=== PATIENT | female | born 1950 | race Caucasian/White ===

== ENCOUNTER → 2016-08-08 | Outpatient (CLI) | payer OTHER ==
[~2016-08-08] MED LIST: CHOL200010 PO; CLIN300C10 PO; DTRSR/2 PO; HYDR-5688 PO; LUTE15CA PO; NAPR1TAB9 PO; OMEGCAP2 PO; OMEP20TA PO; PRLSR20 PO; TRAM-10 PO
[2016-08-08 16:52] LABS: HEMATOCRIT 42.3 % (37-47); MEAN CELL VOLUME 91.2 fL (80-100); MEAN CORPUSCULAR HEMOGLOBIN 30.6 pg (25-34); MEAN CORPUSCULAR HGB CONC 33.6 g/dl (32-36); MEAN PLATELET VOLUME 11.9 fL (7.4-10.4); PLATELET COUNT 228 K/uL (130-400); RED BLOOD COUNT 4.64 M/uL (4.2-5.4)
[2016-08-08 17:00] LABS: ALT/SGPT 18 U/L (12-78); AST/SGOT 10 U/L (15-37); BLOOD UREA NITROGEN 22 mg/dl (7-18); BUN/CREATININE RATIO 33.7 (10-20); CALCIUM 8.8 mg/dl (8.5-10.1); CARBON DIOXIDE 28 mmol/L (21-32); CHLORIDE 104 mmol/L (98-107); CREATININE 0.64 mg/dl (0.60-1.20); GLUCOSE 110 mg/dl (70-99); POTASSIUM 3.8 mmol/L (3.5-5.1); SODIUM 141 mmol/L (136-145)
[2016-08-08 17:11] LABS: ALB/GLOB RATIO 1.3 (0.9-2); ALKALINE PHOSPHATASE 66 U/L (45-117); CHOLESTEROL 189 mg/dl (0-200); CHOLESTEROL/HDL RATIO 1.9; HDL CHOLESTEROL 99 mg/dl; LDL CHOLESTEROL CALCULATED 77 mg/dl; TRIGLYCERIDES 64 mg/dl (0-150); VERY LOW DENSITY LIPOPROT CALC 13 mg/dl
== END | disposition home or self-care (01) ==
LOC: C.LABBC 12:33
PROVIDERS: ATTEND Internal Medicine
DX: Z00.00 Encounter for general adult medical examination without abnormal findings (principal)

== ENCOUNTER → 2016-08-10 | Outpatient (CLI) | payer OTHER ==
--- NOTE | 2016-08-10 12:36 | MAMMOGRAPHY REPORT ---
BILATERAL DIGITAL DIAGNOSTIC MAMMOGRAM TOMOSYNTHESIS WITH CAD AND TARGETED LEFT ULTRASOUND: 08/10/2016 CLINICAL HISTORY: The patient reports intermittent bilateral breast pain since 2016. The breast irene n is nonfocal and arises in different areas at different times. She also reports neck/back pain. S he denies any clear palpable lumps, nipple discharge, or other complaints. TECHNIQUE: Breast tomosynthesis in addition to standard 2D mammography was performed. Current study was also evaluated with a Computer Aided Detection (CAD) system. Bilateral CC and MLO 2-D and bret synthesis images and spot magnification left CC and ML views were obtained. COMPARISON: Comparison is made to exams dated: 01/26/2012 mammogram, 01/09/2012 mammogram, and 2006 mammogram. BREAST COMPOSITION: The tissue of both breasts is heterogeneously dense, which may obscure small ma sses. FINDINGS: There is a spiculated irregular 14 x 11 x 12 mm mass with associated architectural distor tion seen within the left 3:00 periareolar breast, new compared to prior exams. Spot magnification views of the mass demonstrate associated faint punctate and amorphous calcifications within the mass . Additionally, a few faint punctate calcifications are seen extending anterior and posterior to th e mass, with the total extent of calcifications measuring approximately 4 cm. The remainder of both breasts are stable compared to prior exams, without suspicious masses, calcifi cations, or areas of architectural distortion noted. Targeted ultrasound was performed of the area of the mammographic mass. In the left breast at 3:00 periareolar region, there is a hypoechoic irregular solid mass which measures 12 x 9 x 10 mm. A few echogenic foci are seen within the mass, which likely represent the calcifications seen mammographi gary. The mass is suspicious for malignancy and ultrasound-guided core needle biopsy is recommende d for further evaluation. Targeted ultrasound of the left axilla demonstrates morphologically normal left axillary lymph nodes without clear evidence of adenopathy. IMPRESSION: ACR BI-RADS CATEGORY 5: HIGHLY SUGGESTIVE OF MALIGNANCY, TARGETED ULTRASOUND ACR BI-RAD S CATEGORY 5: HIGHLY SUGGESTIVE OF MALIGNANCY 1. Irregular hypoechoic 12 mm mass in the left 3:00 periareolar region, with associated calcificati ons seen within the mass and extending anteriorly and posteriorly. The total extent of the findings measures 4.1 cm. Findings are highly suspicious for malignancy and ultrasound-guided core needle b iopsy is recommended for further evaluation. 2. No mammographic evidence of malignancy in the right breast. 3. No evidence of left axillary adenopathy. 4. No etiology for bilateral breast pain is evident. Recommend clinical follow-up. A phone call was made to the physician's office to confirm faxed results were received. The patient has been verbally notified of the results. She tentatively scheduled the biopsy before leaving the department. Approximately 10% of breast cancers are not detected with mammography. A negative mammographic repor t should not delay biopsy if a clinically suggestive mass is present. Rachelle Hill M.D. ah/:08/10/2016 11:27:01 Management Scientist: Ange PEREZ(Maren)(Tracy), [facility] letter sent: Abnormal 4/5 BI-RADS Code: ACR BI-RADS Category 5: Highly Suggestive Of Malignancy Ultrasound BI-RADS: ACR BI-RA DS Category 5: Highly Suggestive Of Malignancy
== END | disposition home or self-care (01) ==
LOC: C.MAMM 10:09
PROVIDERS: ATTEND Internal Medicine
DX: N64.4 Mastodynia (principal); N63 Unspecified lump in breast

== ENCOUNTER → 2016-08-21 | Outpatient (CLI) | payer OTHER ==
[2016-08-22 06:03] LABS: ESTIMATED AVERAGE GLUCOSE 131 mg/dl; HA1C FLAG Normal (Normal)
== END | disposition home or self-care (01) ==
LOC: C.LABPVFM 15:50
PROVIDERS: ATTEND Internal Medicine
DX: R73.01 Impaired fasting glucose (principal)

== ENCOUNTER → 2016-08-23 | Outpatient (CLI) | payer OTHER ==
--- NOTE | 2016-08-23 10:54 | Discharge Instructions ---
Discharge Instructions Procedure Procedure Date: Aug 23, 2016. Reason for visit: Left Mass. Discharge Discharge Date: Aug 23, 2016. Discharge Diagnosis: status post breast biopsy Instructions Activity Recommendations: Additional Limitations (see below) Return to School/Work: no limitations Recommended Home Diet: No Limitations Provider Instructions: ACTIVITY RECOMMENDATIONS: * No lifting, pushing, pulling or exercising the affected side for three days. RETURN TO SCHOOL/WORK: * You may return to work/school after the procedure, but do not perform any strenuous activities for 24 to 48 hours. MEDICATIONS: * Tylenol (two 325 mg) every four to six hours if needed for mild pain (if not allergic to Tylenol). DIET: * Resume previous diet. SPECIAL CARE INSTRUCTIONS: * Keep biopsy site dry for 24 hours. May shower after 24 hours, but do not soak (bathe) incision. * May remove Tegaderm (plastic patch) tomorrow AFTER showering. * Leave the steri-strips on for one week. Allow the steri-strips to fall off by themselves. If not off after one week, you may remove them. You may place a Bandaid crosswise over the strips, if desired. * Apply ice 10 minutes on and 10 minutes off as needed. * Wear a bra at bedtime to sleep more comfortably for 2-3 days. * Your referring physician should have the results after approximately 5 to 7 business days. * Call for unusual bleeding, fever, drainage, etc or if you have any questions call during normal business hours or after hours call Dr Hill, [phone]. FOLLOW UP VISIT: Follow-up with Referring Physician as scheduled. Allergies Coded Allergies: Penicillins (Unverified Allergy, Mild, 09/21/15) Aspirin (Unverified Allergy, Unknown, UNKNOWN, 09/21/15) Procaine (Verified Allergy, Unknown, ANAPHYLAXIS, 09/21/15) Counter Former instructed pt to never use Novocain [place] Recommendations: Call your doctor if: * Temperature above 101 degrees * Pain not relieved by pain medicine ordered * There is increased drainage or redness from any incision * You have any unanswered questions or concerns. Your Doctors Instructions noted above were prepared by provider Rachelle Hill. Patient Signature Section: Patient Instructions Signature Page Coco Sutherland Patient (or Guardian) Signature/Date: I have read and understand the instructions given to me by my caregivers. Caregiver/RN/Doctor Signature/Date: The above-named patient and/or guardian has received patient instructions on this date. + Original Patient Signature Page (only) stays with chart. Please make copy for patient.
--- NOTE | 2016-08-23 13:33 | MAMMOGRAPHY REPORT ---
ULTRASOUND GUIDED BIOPSY LEFT BREAST: 08/23/2016 CLINICAL HISTORY: Left 3:00 breast mass and associated calcifications. PATIENT CONSENT: The procedure, risks and benefits were discussed with the patient and informed writ ten consent was obtained. A timeout was performed immediately prior to the procedure. PROCEDURE DESCRIPTION: With ultrasound guidance, aseptic technique, and lidocaine as the local anest hetic (1% lidocaine to anesthetize the skin and 1% lidocaine with epinephrine to anesthetize the astrid per tissues), the mass of concern in the left 3:00 breast was sampled 5 times with a 14-gauge Achiev e biopsy needle. Immediately thereafter, with ultrasound guidance, aseptic technique, and lidocaine as the local anesthetic, a metallic localizer clip was placed centrally in the mass. Direct pressu re was applied to the site immediately post procedure and hemostasis was achieved. Postprocedure un ilateral mammograms were performed to confirm placement of the clip in the expected location of the breast mass. A specimen radiograph was performed, which shows probable faint calcifications to be p resent within at least one of the samples. The patient tolerated the procedure without complication . She was given wound care instructions. The specimens were sent to pathology for analysis. COMPARISON: Comparison is made to exams dated: 08/10/2016 ultrasound, 08/10/2016 mammogram - [facility], 01/26/2012 mammogram, and 01/09/2012 mammogram. IMPRESSION: ULTRASOUND GUIDED BIOPSY Ultrasound guided core needle biopsy of the left 3:00 breast mass with associated calcifications, wi th clip placement. The patient will receive pathology results from her referring provider. Rachelle Hill M.D. ah/:08/23/2016 10:56:47 Blow Pit Helper: Ange OCONNELL)(Tracy), [facility]
--- NOTE | 2016-08-23 13:36 | MAMMOGRAPHY REPORT ---
UNILATERAL LEFT DIGITAL DIAGNOSTIC MAMMOGRAM TOMOSYNTHESIS: 08/23/2016 CLINICAL HISTORY: Status post ultrasound guided biopsy of a left 3:00 breast mass. TECHNIQUE: Breast tomosynthesis in addition to standard 2D mammography was performed. Postprocedur al Left CC and ML tomosynthesis views including C views were obtained. COMPARISON: Comparison is made to exams dated: 08/10/2016 ultrasound, 08/10/2016 mammogram - [facility], 01/26/2012 mammogram, and 01/09/2012 mammogram. BREAST COMPOSITION: The tissue of the left breast is heterogeneously dense, which may obscure small masses. FINDINGS: A new biopsy marker clip is seen within the biopsied left 3:00 breast mass. No significa nt postbiopsy hematoma is seen. IMPRESSION: POST PROCEDURE IMAGING FOR MARKER PLACEMENT New biopsy marker clip status post ultrasound guided core needle biopsy of the left 3:00 breast mass . Pathology results are pending. Approximately 10% of breast cancers are not detected with mammography. A negative mammographic repor t should not delay biopsy if a clinically suggestive mass is present. Rachelle Hill M.D. ah/:08/23/2016 11:01:09 Compensation Expert: Ange Pagan RT(R)(M), [facility] BI-RADS Code: Post Procedure Imaging For Marker Placement
== END | disposition home or self-care (01) ==
LOC: C.MAMM 10:17
PROVIDERS: ATTEND Internal Medicine
DX: N63 Unspecified lump in breast (principal); R92.1 Mammographic calcification found on diagnostic imaging of breast; C50.912 Malignant neoplasm of unspecified site of left female breast

== ENCOUNTER 2016-11-06 08:18 | Observation (INO) | payer OTHER ==
[2016-10-16 11:11] VITALS: BMI 28.0
[2016-10-16 15:00] LABS: BASO % 0.9 %; BASO ABS # 0.06 K/uL (0-0.2); COMPLETE YES; EOS % 3.3 %; IG% 0.3 %; LYMPH % 33.7 %; LYMPH ABS # 2.37 K/uL (1.2-3.4); MEAN CELL VOLUME 89.3 fL (80-100); MEAN CORPUSCULAR HEMOGLOBIN 30.3 pg (25-34); MEAN CORPUSCULAR HGB CONC 33.9 g/dl (32-36); MEAN PLATELET VOLUME 11.9 fL (7.4-10.4); MONO % 12.7 %; NEUT % 49.1 %; PLATELET COUNT 224 K/uL (130-400); RED BLOOD COUNT 4.59 M/uL (4.2-5.4); WHITE BLOOD COUNT 7.03 K/uL (4.8-10.8)
[2016-10-16 15:46] LABS: BUN/CREATININE RATIO 33.4 (10-20); CALCIUM 9.1 mg/dl (8.5-10.1); CREATININE 0.76 mg/dl (0.60-1.20); POTASSIUM 4.3 mmol/L (3.5-5.1)
[~2016-11-06] VITALS: Ht 167.6 cm; Wt 78.2 kg
[2016-11-06] VITALS (8 sets, daily range): BP systolic 110–161; BP diastolic 67–79; PULSE 84–99; TEMP 36.7–37; O2SAT 94–99; Ht 167.6 cm; Wt 78.2 kg
[~2016-11-06 08:18] MED LIST changes: -CHOL200010 PO; -CLIN300C10 PO; +CLINDAMYCIN IV 900 MG in DEXTROSE 5% ADD-VANTAGE 100ML 100 ML IV SCH; -HYDR-5688 PO; +LACTATED RINGER'S 1000ML 1,000 ML IV SCH; -LUTE15CA PO; -OMEGCAP2 PO; -PRLSR20 PO
[2016-11-06] MEDS ORDERED: FENTANYL CITRATE INJ 50 MCG/1 ML 2 ML VIAL ONE (08:44)
[2016-11-06] MEDS ORDERED: MIDAZOLAM HCL 1 MG/ML 2ML VIAL ONE (08:44)
[2016-11-06] MEDS ORDERED: HYDROmorphone INJ 1 MG/ML SYR IV PRN ×2 (08:45→11:30)
[2016-11-06] MEDS ORDERED: ONDANSETRON INJ 2 MG/ML 2 ML VIAL IV PRN ×3 (08:45→12:00)
[2016-11-06] MEDS ORDERED: ATROPINE SULFATE 0.1 MG/ML 5ML SYR IV PRN ×2 (08:45→11:30)
[2016-11-06] MEDS ORDERED: LABETALOL HCL IV 5 MG/ML 20ML IV PRN ×2 (08:45→11:30)
[2016-11-06] MEDS ORDERED: EpHEDrine SULFATE INJ 50 MG/ML AMP IV PRN ×2 (08:45→11:30)
[2016-11-06] MEDS ORDERED: MEPERIDINE HCL 25 MG/ML CARP IV PRN ×2 (08:45→11:30)
[2016-11-06] MEDS ORDERED: ISOSULFAN BLUE 10 MG/ML VIAL 5 ML ONE (09:17)
[2016-11-06] MEDS ORDERED: BUPIVACAINE 0.5 % 5 MG/1 ML MPF 30ML VIAL ONE (09:17)
--- NOTE | 2016-11-06 09:32 | History & Physical Bridge Note ---
H&P Re-Evaluation Bridge Note: I have examined the patient, reviewed the History & Physical and in the interval since the performance of the History & Physical I have noted the following changes of clinical significance: No changes noted
--- NOTE | 2016-11-06 10:24 | DIAGNOSTIC IMAGING REPORT ---
INJECTION FOR NUCLEAR MEDICINE SENTINEL NODE IDENTIFICATION CLINICAL HISTORY: BREAST CA COMPARISON STUDY: Mammogram dated 11/06/2016 FINDINGS: A timeout was performed. The patient's left breast was prepped in a sterile fashion. 5 periareolar intradermal injections were performed utilizing a total dose of 0.45 mCi of technetium 99m Lymphoseek No imaging was performed. Localization will be performed in the operating room. IMPRESSION: A left breast lymphoscintigraphy injection was performed. Electronically signed by: Hunter Weinberg M.D. 11/06/2016 10:23 AM Dictated Date/Time: 11/06/2016 10:21 AM
[2016-11-06] MEDS ORDERED: LIDOCAINE HCL 2% 2 ML VIAL (20MG/ML) ONE (10:42)
[2016-11-06] MEDS ORDERED: DEXAMETHASONE SOD INJ 4 MG/ML VIAL ONE (10:42)
[2016-11-06] MEDS ORDERED: PROPOFOL IV EMULSION 10 MG/ML 20 ML VIAL IV ONE (10:42)
[2016-11-06] MEDS ORDERED: ONDANSETRON INJ 2 MG/ML 2 ML VIAL ONE (10:42)
[2016-11-06] MEDS ORDERED: METHYLENE BLUE 0.5% 10 ML VIAL ONE (10:47)
[2016-11-06] MEDS ORDERED: PHENYLEPHRINE HCL INJ 10 MG/ML VIAL ONE (10:58)
[2016-11-06] MEDS ORDERED: FENTANYL CITRATE INJ 50 MCG/1 ML 2 ML VIAL IV PRN (11:30)
--- NOTE | 2016-11-06 11:47 | [facility] Post Operative Brief Note ---
Immediate Operative Summary Operative Date November 06, 2016. Pre-Operative Diagnosis Left Breast Cancer Post-Operative Diagnosis Left Breast Cancer Procedure(s) Performed Left Breast Lumpectomy with Needle Loc and [place] Lymph Node Biopsy Surgeon Dr. Esteban Spudder Surgeon(s) Montez Snyder Estimated Blood Loss 15mL Findings negative SLN, clip w/n breast tissue Specimens A. Left breast tissue: skin and needle is anterior, long silk is lateral, short silk is superior, plain gut is medial. B. Additional superior tissue: long silk lateral, methylene blue is new margin. C. Additional deep medial tissue. Silk is lateral, methylene blue is new margin. Anesthesia gen Complication(s) None Disposition Recovery Room / PACU
[2016-11-06] MEDS ORDERED: LACTATED RINGER'S 1000ML 1,000 ML IV SCH (11:51)
[2016-11-06] MEDS ORDERED: MoRPHine SULFATE 2 MG/ML CARP IV PRN (12:00)
[2016-11-06] MEDS ORDERED: MoRPHine SULFATE 4 MG/ML 1 ML CARP\\VIAL IV PRN (12:00)
[2016-11-06] MEDS ORDERED: HYDROCODONE/ACETAMOPHEN 5/325MG TAB PO PRN (12:00)
[2016-11-06] MEDS ORDERED: PROMETHAZINE HCL INJ 25 MG in SODIUM CHLORIDE 0.9% 50ML 50 ML IV PRN (12:00)
[2016-11-06] MEDS: FENTANYL CITRATE INJ 50 MCG/1 ML 2 ML VIAL IV PRN ×3 (12:12→12:22)
--- NOTE | 2016-11-06 13:01 | Anesthesiology Progress Note ---
Anesthesia Post Op Note Date & Time November 06, 2016 at 13:01 Vital Signs Pain Intensity: 3 Vital Signs Past 12 Hours Date Time Temp Pulse Resp B/P Pulse Ox O2 Delivery O2 Flow Rate FiO2 11/06/16 12:41 83 9 11/06/16 12:41 82 9 98 11/06/16 12:40 129/80 11/06/16 12:36 84 15 100 11/06/16 12:36 84 15 11/06/16 12:35 129/83 11/06/16 12:31 80 14 11/06/16 12:31 80 14 99 11/06/16 12:30 134/82 11/06/16 12:26 74 4 95 11/06/16 12:26 75 4 11/06/16 12:25 129/72 11/06/16 12:21 86 16 11/06/16 12:21 84 16 100 11/06/16 12:20 130/77 11/06/16 12:16 89 15 100 11/06/16 12:16 89 15 11/06/16 12:15 131/81 11/06/16 12:12 84 15 100 11/06/16 12:12 86 15 11/06/16 12:10 129/84 11/06/16 12:07 89 12 100 11/06/16 12:07 88 12 11/06/16 12:05 125/81 11/06/16 12:02 85 15 100 11/06/16 12:02 83 15 11/06/16 12:00 126/79 11/06/16 11:57 86 11/06/16 11:57 86 139/83 100 11/06/16 11:57 36.1 87 16 139/83 100 Mask 10 11/06/16 10:05 37 18 161/76 97 Room Air Notes Mental Status: alert / awake / arousable, participated in evaluation Pt Amnestic to Procedure: Yes Nausea / Vomiting: adequately controlled Pain: adequately controlled Airway Patency, RR, SpO2: stable & adequate BP & HR: stable & adequate Hydration State: stable & adequate Anesthetic Complications: no major complications apparent
--- NOTE | 2016-11-06 13:33 | OPERATIVE REPORT ---
DATE OF OPERATION: 11/06/2016 NAME OF OPERATION: Left partial mastectomy with sentinel lymph node biopsy. PREOPERATIVE DIAGNOSIS: Left breast cancer. POSTOPERATIVE DIAGNOSIS: Same. STAFF SURGEON: Dr. Esteban. AIRLINE MECHANIC: Stevie Scott PA-C. PROCEDURE: The patient was brought in the operating room and placed on the operating table in supine position. Her left breast and axilla were prepped and draped in usual fashion. Incision was made in the left axilla using 0.5% plain Marcaine to anesthetize skin and subcutaneous tissue. Using the Neoprobe, I was able to localize the sentinel node which was sent for frozen section, it was found to be negative. During the frozen section, lumpectomy was performed. The patient had a needle placed in the 4 o'clock position of the left breast. Elliptical incision was made around this area from 5 o'clock to 3 o'clock, dissection carried down around the needle excising the breast tissue. The initial breast tissue was marked with the skin and needle anterior from the 3 o'clock to 5 o'clock position, long silk lateral, short silk superior, plain catgut was medial. This tissue was placed into the Faxitron, the clip was within the tissue. Discussion with Dr. Jade let us to take additional tissue. We took additional superior tissue which was marked with a long silk suture lateral and methylene blue on the new margin. This tissue was likely distal to the tip of the needle and posterior. We also took additional deep and medial tissue which was more retroareolar with a silk suture lateral, methylene blue on the new margin. Clips were placed at the level of the area of tumor and then the deep tissue reapproximated using 2-0 plain catgut suture, then the subcutaneous tissue reapproximated using 3-0 Vicryl suture, then the skin reapproximated using subcuticular 4-0 Monocryl with Steri-Strips to the breast and then 4-0 Prolene at the axillary level. Dressings applied and the patient transferred to recovery room in stable condition. I attest to the content of the Intraoperative Record and any orders documented therein. Any exceptio ns are noted below.
[2016-11-06] MEDS: HYDROCODONE/ACETAMOPHEN 5/325MG TAB PO PRN ×2 (13:39→22:01)
[2016-11-06] MEDS ORDERED: IV FLUIDS COMPLETED PRN (14:15)
--- NOTE | 2016-11-06 14:25 | MAMMOGRAPHY REPORT ---
UNILATERAL LEFT DIGITAL DIAGNOSTIC MAMMOGRAM TOMOSYNTHESIS: 11/06/2016 CLINICAL HISTORY: Biopsy-proven left breast cancer. Patient presents for left lumpectomy, including preoperative localization. Please refer to report from left breast ultrasound guided needle localization performed at the same time for full detail. IMPRESSION: Please refer to report from left breast ultrasound guided needle localization performed at the same time for full detail. Approximately 10% of breast cancers are not detected with mammography. A negative mammographic repor t should not delay biopsy if a clinically suggestive mass is present. Gypsy Jade M.D. ay/:11/06/2016 10:45:06 Front Man: Lulu PEREZ(Maren)(M), [facility] BI-RADS Code: n/a
--- NOTE | 2016-11-06 14:25 | MAMMOGRAPHY REPORT ---
NEEDLE LOCALIZATION LEFT BREAST: 11/06/2016 CLINICAL HISTORY: Biopsy-proven left breast cancer. Patient presents for preoperative localization prior to lumpectomy. COMPARISON: Comparison is made to exams dated: 08/23/2016 ultrasound biopsy, 08/23/2016 mammogram, 08/10/2016 ultrasound, 08/10/2016 mammogram - [facility], and 01/26/2012 mammogram. PATIENT CONSENT: The risks of the procedure were explained to the patient and informed consent was o btained. The patient denied any allergy to lidocaine, which she received and had no problems with a t the time of ultrasound-guided core biopsy. She also denied eating or drinking anything this morni ng that would preclude anesthesia. PROCEDURE DESCRIPTION: Postprocedure mammograms obtained after ultrasound guided core biopsy on 08/03 were reviewed. The spiculated mass and internal metallic biopsy marker are the intended targ et for preoperative localization. Based on prior spot magnification views obtained during diagnosti c workup on 08/10/2016, there are also faint microcalcifications medial and posterior to the spicula jorge mass, and no will be made of these macro calcification with regard to the localizing needle and wire. A time out was performed in the left breast was agreed as the site for preoperative localization. R epeat targeted ultrasound was performed in the 3:00 periareolar left breast in the area of biopsy-pr oven cancer. An irregular and spiculated hypoechoic solid mass with internal metallic biopsy marker is identified. This is amenable to ultrasound-guided localization. The skin was cleansed with Bet adine. 1% buffered lidocaine without epinephrine was administered as local anesthesia. A 5 cm Hawk ins 2 needle and wire combination was inserted through the mass with the notch of the needle along t he lateral margin of the mass. Then the wire was locked in place. The patient tolerated the proced ure well. The needle and wire combination were taped in place to the skin of the left breast. Postprocedure left CC and ML 2-D digital and tomosynthesis images were obtained. The ribbon-shaped metallic biopsy marker is located at the base of the wire as it exits the localizing needle. Faint microcalcifications extend posterior to the needle and also slightly medial based on the CC projecti on, and at the same level of the needle based on the MLO projection. The entire procedure including needle length and approach were discussed with the operating surgeon prior to surgery. The specimen radiograph demonstrates the localizing needle and wire, the ribbon-shaped metallic biop sy marker and a dense spiculated mass. Faint microcalcifications extend throughout the specimen mos tly from 1 through 6 and A through H on the alphanumeric grid. These findings are compatible with s uccessful preoperative localization and subsequent surgical excision. Final pathology is pending. IMPRESSION: NEEDLE LOCALIZATION Status post ultrasound-guided preoperative needle and wire localization for biopsy-proven cancer in the 3:00 periareolar left breast. The imaged specimen includes the intended abnormalities. Final p athology is pending. Gypsy Jade M.D. ay/:11/06/2016 13:20:54 Family Intervention Specialist: Lulu PEREZ(Maren)(M), [facility]
--- NOTE | 2016-11-06 14:25 | MAMMOGRAPHY REPORT ---
SPECIMEN LEFT BREAST: 11/06/2016 CLINICAL HISTORY: Left lumpectomy specimen. Biopsy-proven left breast cancer in the 3:00 periareola r axis. Please refer to the report from left breast ultrasound guided needle localization performed at the s david time for full detail. IMPRESSION: SPECIMEN Please refer to the report from left breast ultrasound guided needle localization performed at the s david time for full detail. Gypsy Jade M.D. ay/:11/06/2016 10:18:33 Mining Plant Operator: Lulu Craven, [facility]
[2016-11-06] MEDS: CIPROFLOXACIN / D5W 400 MG in PREMIXED IN D5W 200 ML IV SCH (14:35)
--- NOTE | 2016-11-06 14:39 | Discharge Instructions ---
Discharge Instructions Date of Service November 06, 2016. Admission Reason for Admission: Left Breast Cancer W/Hosp Loc & Nm Lymph Inj Discharge Discharge Diagnosis / Problem: Lt breast cancer Discharge Goals Goal(s): Decrease discomfort, Improve function, Improve disease control Activity Recommendations Activity Limitations: as noted below Lifting Limitations: no more than 10 pounds Exercise/Sports Limitations: until after follow-up appointment May Resume Sexual Activity: when tolerated (may shower over incision Wed 11/08) Driving or Machine Use: resume 3 days after discharge SPECIAL CARE INSTRUCTIONS: * Cover incisions and change daily for comfort/drainage * May use ibuprofen for pain as tolerated. * Expect some swelling and bruising. Call your doctor if: * Temperature above 101 degrees * Pain not relieved by pain medicine ordered * There is increased drainage or redness from any incision * You have any unanswered questions or concerns [phone]. FOLLOW UP VISIT: If not already scheduled, please call the office for a follow-up visit. for next week- wound check, some suture removal OFFICE PHONE NUMBER: Dr. Esteban Office . Current Hospital Diet Patient's current hospital diet: Regular Diet Discharge Diet Recommended Diet: Regular Diet Procedures Procedures Performed: Left Breast Lumpectomy with Needle Loc and [place] Lymph Node Biopsy Pending Studies Studies pending at discharge: no Laboratory Results Hemoglobin A1c Test 08/21/16 15:55 Range/Units Estimated Average Glucose 131 mg/dl Hemoglobin A1c 6.2 H 4.5-5.6 % Medical Emergencies . Who to Call and When: Medical Emergencies: If at any time you feel your situation is an emergency, please call 911 immediately. . Non-Emergent Contact Non-Emergency issues call your: Primary Care Provider, Surgeon . "Provider Documentation" section prepared by Olivier Esteban. . VTE Core Measure Inpt VTE Proph given/why not?: SCD's
[2016-11-06] MEDS ORDERED: HYDR-5688 PO (14:40)
[2016-11-06] MEDS ORDERED: PNEUMOCOCCAL ADMINISTRATION CHARGE ONE (16:30)
[2016-11-06] MEDS ORDERED: PNEUMOCOCCAL POLYSACCHARIDES 25 MCG/0.5 ML VIAL/SYR IM. ONE (16:30)
[2016-11-07 00:02] VITALS: BP 108/67; PULSE 80; TEMP 36.7; O2SAT 95
[2016-11-07 04:35] VITALS: BP 116/71; PULSE 99; TEMP 36.8; O2SAT 99
[2016-11-07] MEDS: CIPROFLOXACIN / D5W 400 MG in PREMIXED IN D5W 200 ML IV SCH (05:41)
--- NOTE | 2016-11-07 07:08 | DISCHARGE SUMMARY ---
PRINCIPAL DIAGNOSIS: Left breast cancer. PROCEDURES: The patient underwent needle localization, left partial mastectomy with sentinel lymph node biopsy. HISTORY OF PRESENT ILLNESS: The patient is a 66-year-old female who has been diagnosed with a left breast cancer via core biopsy being brought into the hospital for definitive surgery. HOSPITAL COURSE: The patient was taken to the operating room on 11/07/2016 where she underwent left partial mastectomy with sentinel lymph node biopsy. [place] lymph node was negative. The patient tolerated the procedure very well and has done well overnight and is felt stable for discharge home today to be seen in the surgical clinic within 1 week.
[2016-11-07 07:52] VITALS: BP 106/70; PULSE 82; TEMP 37; O2SAT 98
--- NOTE | 2016-11-07 08:20 | Anesthesiology Progress Note ---
Anesthesia Post Op Note Date & Time November 07, 2016 at 08:19 Vital Signs Pain Intensity: 0.0 Vital Signs Past 12 Hours Date Time Temp Pulse Resp B/P Pulse Ox O2 Delivery O2 Flow Rate FiO2 11/07/16 07:52 37.0 82 18 106/70 98 Room Air 11/07/16 04:35 36.8 99 16 116/71 99 11/07/16 00:02 36.7 80 16 108/67 95 Room Air Notes Mental Status: alert / awake / arousable, participated in evaluation Pt Amnestic to Procedure: Yes Nausea / Vomiting: adequately controlled Pain: adequately controlled Airway Patency, RR, SpO2: stable & adequate BP & HR: stable & adequate Hydration State: stable & adequate Anesthetic Complications: no major complications apparent
[2016-11-07] MEDS ORDERED: TOLTERODINE TARTRATE LA 2 MG CAPCR PO SCH (09:00)
[2016-11-07 09:20] VITALS: O2SAT 98
[2016-11-07 09:47] VITALS: BP 106/70; PULSE 82; TEMP 37; O2SAT 98
[2016-11-07] MEDS: HYDROCODONE/ACETAMOPHEN 5/325MG TAB PO PRN (11:33)
[2016-11-15] MEDS ORDERED: PRLSR20 PO (11:48)
[2016-11-15] MEDS ORDERED: HYDR-5688 PO (11:48)
[2016-11-15] MEDS ORDERED: DTRSR/2 PO (11:48)
[2016-11-15] MEDS ORDERED: NAPR1TAB9 PO (11:48)
== END 2016-11-07 13:20 | disposition home or self-care (01) ==
LOC: ENRESERVDT → ENRESERVTM → C.ACU 08:18 → C.MSN 11:55
PROVIDERS: ADMIT Surgery; ATTEND Surgery
DX: C50.912 Malignant neoplasm of unspecified site of left female breast (principal); R73.01 Impaired fasting glucose

== ENCOUNTER 2016-12-04 05:46 | Observation (INO) | payer OTHER ==
[2016-11-21 12:21] VITALS: BMI 28.0
[~2016-12-04] VITALS: Ht 167.6 cm; Wt 78.2 kg
[2016-12-04] VITALS (10 sets, daily range): BP systolic 91–142; BP diastolic 50–81; PULSE 80–100; TEMP 36.8–37.4; O2SAT 92–99; Ht 167.6 cm; Wt 78.2 kg
[~2016-12-04 05:46] MED LIST changes: -CLINDAMYCIN IV 900 MG in DEXTROSE 5% ADD-VANTAGE 100ML 100 ML IV SCH; +HYDR-5688 PO; -LACTATED RINGER'S 1000ML 1,000 ML IV SCH; -OMEP20TA PO; +PRLSR20 PO
[2016-12-04] MEDS ORDERED: CLINDAMYCIN IV 900 MG in DEXTROSE 5% ADD-VANTAGE 100ML 100 ML IV SCH (06:00)
[2016-12-04] MEDS ORDERED: LACTATED RINGER'S 1000ML 1,000 ML IV SCH ×2 (06:00→08:09)
[2016-12-04] MEDS ORDERED: PROPOFOL IV EMULSION 10 MG/ML 20 ML VIAL IV ONE (06:39)
[2016-12-04] MEDS ORDERED: LIDOCAINE HCL 2% 2 ML VIAL (20MG/ML) ONE (06:39)
[2016-12-04] MEDS ORDERED: ONDANSETRON INJ 2 MG/ML 2 ML VIAL ONE (06:39)
[2016-12-04] MEDS ORDERED: DEXAMETHASONE SOD INJ 4 MG/ML VIAL ONE (06:39)
[2016-12-04] MEDS ORDERED: FENTANYL CITRATE INJ 50 MCG/1 ML 2 ML VIAL ONE (06:40)
[2016-12-04] MEDS ORDERED: MIDAZOLAM HCL 1 MG/ML 2ML VIAL ONE (06:40)
[2016-12-04] MEDS ORDERED: EpHEDrine SULFATE INJ 50 MG/ML AMP IV PRN (07:00)
[2016-12-04] MEDS ORDERED: ATROPINE SULFATE 0.1 MG/ML 5ML SYR IV PRN (07:00)
[2016-12-04] MEDS ORDERED: ONDANSETRON INJ 2 MG/ML 2 ML VIAL IV PRN ×2 (07:00→08:15)
[2016-12-04] MEDS ORDERED: HYDROmorphone INJ 1 MG/ML SYR IV PRN (07:00)
[2016-12-04] MEDS ORDERED: METHYLENE BLUE 0.5% 10 ML VIAL ONE (07:09)
[2016-12-04] MEDS ORDERED: EpHEDrine SULFATE 50MG/5ML SYR ONE (07:23)
[2016-12-04] MEDS ORDERED: BACITRACIN 50000 UNIT VIAL ONE (07:37)
[2016-12-04] MEDS ORDERED: PROMETHAZINE HCL INJ 25 MG in SODIUM CHLORIDE 0.9% 50ML 50 ML IV PRN (08:15)
[2016-12-04] MEDS ORDERED: MoRPHine SULFATE 4 MG/ML 1 ML CARP\\VIAL IV PRN (08:15)
[2016-12-04] MEDS: FENTANYL CITRATE INJ 50 MCG/1 ML 2 ML VIAL IV PRN ×4 (08:33→08:48)
--- NOTE | 2016-12-04 08:37 | OPERATIVE REPORT ---
DATE OF OPERATION: 12/04/2016 NAME OF OPERATION: Reexcision left breast tissue/partial mastectomy with wound culture. STAFF SURGEON: Dr. Esteban. ROTOFORMER BACKTENDER: Jyoti Campso PA-C. ANESTHESIA: General. PROCEDURE: The patient was brought in the operating room and placed on the operating table in supine position. Her left breast was prepped and draped in usual fashion. 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 At this point, I did observe some mild cellulitis surrounding the incision. The incision was opened, carrying dissection down identifying the biopsy cavity. The cavity contained clear fluid with no exudate. It was cultured. At this point, the cavity was opened. The margin was at the inferior portion of the specimen on the previous operation. At this point, I took additional inferior and deep tissue. It was marked with silk sutures with a long silk lateral, short silk medial, plain catgut suture superior and then methylene blue on the new margin. I also took additional superior tissue because of its density and this was also marked long silk lateral, short silk medial, and methylene blue new margin. At this point, a Diego-Armas drain was placed through a separate stab incision into the cavity, secured to the skin using 3-0 nylon suture, then the deep wound was reapproximated using 2-0 plain catgut suture, then the skin reapproximated using subcuticular 4-0 Monocryl in interrupted fashion with Steri-Strips. The patient was then transferred to recovery room in stable condition. I attest to the content of the Intraoperative Record and any orders documented therein. Any exception s are noted below.
[2016-12-04] MEDS ORDERED: IV FLUIDS COMPLETED PRN (09:00)
--- NOTE | 2016-12-04 09:00 | Anesthesiology Progress Note ---
Anesthesia Post Op Note Date & Time Dec 04, 2016 at 09:00 Vital Signs Pain Intensity: 4 Vital Signs Past 12 Hours Date Time Temp Pulse Resp B/P (MAP) Pulse Ox O2 Delivery O2 Flow Rate FiO2 12/04/16 08:45 36.5 82 16 135/83 97 Nasal Cannula 3 12/04/16 08:35 84 16 139/82 100 Nasal Cannula 3 12/04/16 08:25 92 16 146/82 100 Mask 6 12/04/16 08:15 90 16 139/77 100 Mask 10 12/04/16 08:09 36.6 86 14 132/72 100 Mask 10 12/04/16 06:27 37.4 80 20 110/65 (80) 95 Room Air Notes Mental Status: alert / awake / arousable, participated in evaluation Pt Amnestic to Procedure: Yes Nausea / Vomiting: adequately controlled Pain: adequately controlled Airway Patency, RR, SpO2: stable & adequate BP & HR: stable & adequate Hydration State: stable & adequate Anesthetic Complications: no major complications apparent
[2016-12-04] MEDS ORDERED: PROMETHAZINE HCL INJ 12.5 MG in SODIUM CHLORIDE 0.9% 50ML 50 ML IV PRN (10:00)
[2016-12-04] MEDS: MoRPHine SULFATE 2 MG/ML CARP IV PRN ×2 (10:37→14:24)
--- NOTE | 2016-12-04 10:39 | Progress Note ---
Progress Note Date of Service Dec 04, 2016. Progress Note ID Consult Dictated #[id number] A/P: 1. Post op infection -continue abx ,follow cultures and adjust as needed will follow, thank you
--- NOTE | 2016-12-04 13:06 | INFECT. DISEASE CONSULTATION ---
DATE OF CONSULTATION: 12/04/2016 REQUESTING PHYSICIAN: Dr. Esteban. HISTORY OF PRESENT ILLNESS: This is a 66-year-old female who developed infection over her surgical site. She did undergo mastectomy and sentinel lymph node biopsy on November 06. She tolerated this procedure well and was discharged home. She does have a diagnosis of breast cancer, but a lymphnode biopsy was unremarkable. She is also being followed by hematology/oncology as well as radiation. She developed some erythema and pain over the surgical site over during the week last week and saw the surgery team on Sunday of last week. It was decided that she would come in today for I&D. Culture was done in the operating room and is pending. She was started postoperatively on clindamycin and appears to be tolerating this well. She denies any fevers or chills at home. She is having pain in the area of the incision which is worse postoperatively; however, she denies any wound dehiscence, drainage or bleeding prior to admission. She denies any fevers or chills. She denies chest pain, cough, shortness of breath, nausea, vomiting, diarrhea or abdominal pain. All remaining review of systems is negative except for as noted above. PAST MEDICAL HISTORY: Significant for breast cancer which was recently diagnosed in August. She has GERD, osteoarthritis, urinary incontinence and diet-controlled diabetes. PAST SURGICAL HISTORY: Significant for bowel obstruction, right knee surgery and dental surgery. FAMILY HISTORY: Noncontributory. SOCIAL HISTORY: Negative for tobacco use. She drinks occasionally. She denies any drug use. She lives with her . ALLERGIES: INCLUDE ASPIRIN, PENICILLIN AND PROCAINE. CURRENT MEDICATIONS: Include Detrol-LA, clindamycin, Percocet, morphine, Zofran, Dilaudid, Fentanyl. PHYSICAL EXAMINATION: VITAL SIGNS: She is afebrile, pulse 90, respiratory rate 16, blood pressure 142/80, oxygen saturation is 99% on 2 liters. GENERAL: She is awake, alert and oriented x3. She is in no acute distress. HEENT: Mucous membranes are moist. Extraocular muscles are intact. HEART: Regular. LUNGS: Clear. ABDOMEN: Soft. There is no edema bilaterally. SKIN: Without rash. Postoperative incision is clean, dry and intact. KARMA drain is in place with minimal serosanguineous fluid. LABORATORY STUDIES: Were not obtained at this admission. Her last creatinine was done in September 2016 and was 0.76. Wound culture is pending; however, a few WBCs and no organisms noted on Gram stain. There is no imaging to review. ASSESSMENT AND PLAN: 1. Postop infection status post incision and drainage. She will continue empirically on antibiotics pending wound culture results and antibiotics will be adjusted based on further microdata. We will follow along with you. Thank you for this consultation. KAILA
[2016-12-04] MEDS ORDERED: CLINDAMYCIN IV 600 MG in DEXTROSE 5% ADD-VANTAGE 50ML 50 ML IV ONE (14:00)
[2016-12-04] MEDS ORDERED: CLINDAMYCIN 600 MG/54 ML D5W IV ONE (14:00)
[2016-12-04] MEDS: HYDROCODONE/ACETAMOPHEN 5/325MG TAB PO PRN ×2 (19:48→21:47)
[2016-12-05 03:22] VITALS: BP 122/75; PULSE 86; TEMP 36.6; O2SAT 96
--- NOTE | 2016-12-05 07:18 | Surgery Progress Note ---
Surgery Progress Note Date of Service Dec 05, 2016. Subjective awake, alert, no acute changes Objective Vital Signs: Date Time Temp Pulse Resp B/P (MAP) Pulse Ox O2 Delivery O2 Flow Rate FiO2 12/05/16 03:22 36.6 86 18 122/75 (91) 96 Room Air 12/04/16 23:59 Room Air 12/04/16 22:47 36.8 81 17 103/66 (78) 94 Room Air 12/04/16 19:50 Room Air 12/04/16 19:35 36.8 96 18 113/70 (84) 93 Room Air 12/04/16 16:04 37.0 100 18 137/81 (99) 92 Room Air 12/04/16 13:02 88 127/78 (94) 12/04/16 12:09 88 18 120/76 (91) 97 12/04/16 11:16 37.0 88 18 91/50 (64) 97 Room Air 12/04/16 10:39 87 16 119/75 (90) 12/04/16 09:53 99 Nasal Cannula 2.0 12/04/16 09:50 36.8 90 16 142/80 (100) 98 Nasal Cannula 2.0 12/04/16 09:50 99 Nasal Cannula 2.0 12/04/16 09:30 81 16 122/76 98 Nasal Cannula 3 12/04/16 09:15 86 16 134/77 98 Nasal Cannula 3 12/04/16 09:00 85 16 139/80 98 Nasal Cannula 3 12/04/16 08:45 36.5 82 16 135/83 97 Nasal Cannula 3 12/04/16 08:35 84 16 139/82 100 Nasal Cannula 3 12/04/16 08:25 92 16 146/82 100 Mask 6 12/04/16 08:15 90 16 139/77 100 Mask 10 12/04/16 08:09 36.6 86 14 132/72 100 Mask 10 General Appearance: no apparent distress Respiratory/Chest: no respiratory distress Incision(s): intact, drainage (serous KARMA drainage) Laboratory Results: Results Past 24 Hours Test 12/04/16 08:25 Range/Units Bedside Glucose 156 70-90 mg/dl Microbiology Results 12/04/16 Gram Stain - Final, Resulted 12/04/16 Bacterial Culture, Resulted Pending Lt breast erythema is almost completely resolved Assessment & Plan 12/05/16- s/p reexcision Lt breast tissue- h/o DCIS at margin had erythema of the Lt breast preop- cellulitis vs lymphedema- concern for infection- had seroma which was cultured- pending result. Continue on IV Clinda probable d/c tomorrow when cult results known leave drain
[2016-12-05 07:48] VITALS: BP 113/74; PULSE 81; TEMP 36.8; O2SAT 97
[2016-12-05] MEDS: CLINDAMYCIN IV 600 MG in DEXTROSE 5% ADD-VANTAGE 50ML 50 ML IV SCH ×3 (07:50→23:38)
[2016-12-05] MEDS: HYDROCODONE/ACETAMOPHEN 5/325MG TAB PO PRN ×3 (08:58→21:39)
[2016-12-05] MEDS ORDERED: TOLTERODINE TARTRATE LA 2 MG CAPCR PO SCH (09:00)
[2016-12-05] MEDS: TOLTERODINE TARTRATE 1 MG TAB PO SCH (09:16)
--- NOTE | 2016-12-05 09:46 | Anesthesiology Progress Note ---
Anesthesia Post Op Note Date & Time Dec 05, 2016 at 09:46 Vital Signs Pain Intensity: 5.0 Vital Signs Past 12 Hours Date Time Temp Pulse Resp B/P (MAP) Pulse Ox O2 Delivery O2 Flow Rate FiO2 12/05/16 07:48 36.8 81 18 113/74 (87) 97 Room Air 12/05/16 07:38 Room Air 12/05/16 03:22 36.6 86 18 122/75 (91) 96 Room Air 12/04/16 23:59 Room Air 12/04/16 22:47 36.8 81 17 103/66 (78) 94 Room Air Notes Mental Status: alert / awake / arousable, participated in evaluation Pt Amnestic to Procedure: Yes Nausea / Vomiting: adequately controlled Pain: adequately controlled Airway Patency, RR, SpO2: stable & adequate BP & HR: stable & adequate Hydration State: stable & adequate Anesthetic Complications: no major complications apparent
[2016-12-05 12:13] VITALS: BP 110/67; PULSE 79; TEMP 36.9; O2SAT 94
--- NOTE | 2016-12-05 15:31 | Progress Note ---
Subjective Date of Service: Dec 05, 2016. Subjective Pt evaluation today including: conversation w/ patient, conversation w/ family , physical exam, chart review, lab review pt seen in followup, not feeling ready to go home, still with pain. tolerating abx. drain remains in place. denies f/c. no new labs. culture negative to date. all remaining ros reviewed and are negative. Problem List Medical Problems: (1) Breast pain, left Status: Acute (2) Chest pain Status: Acute (3) Fecal impaction of colon Status: Acute Objective Vital Signs Date Time Temp Pulse Resp B/P (MAP) Pulse Ox O2 Delivery O2 Flow Rate FiO2 12/05/16 12:13 36.9 79 18 110/67 (81) 94 Room Air 12/05/16 07:48 36.8 81 18 113/74 (87) 97 Room Air 12/05/16 07:38 Room Air 12/05/16 03:22 36.6 86 18 122/75 (91) 96 Room Air 12/04/16 23:59 Room Air 12/04/16 22:47 36.8 81 17 103/66 (78) 94 Room Air 12/04/16 19:50 Room Air 12/04/16 19:35 36.8 96 18 113/70 (84) 93 Room Air 12/04/16 16:04 37.0 100 18 137/81 (99) 92 Room Air Physical Exam General Appearance: WD/WN, no apparent distress Eyes: normal inspection, EOMI Neck: supple Respiratory/Chest: lungs clear, normal breath sounds, no respiratory distress Cardiovascular: regular rate, rhythm, no edema Abdomen: soft Extremities: non-tender, normal inspection, no pedal edema Neurologic/Psychiatric: alert, oriented x 3 Skin: normal color Comments: dressing c/d/i. drain with min serosang drainage. Laboratory Results Item Value Date Time Gram Stain - Final Resulted 12/04/16 0720 Drainage-Deep Chest Assessment and Plan (1) Post-operative infection Assessment & Plan: continue abs for now, follow culture. local wound care.
[2016-12-05 22:47] VITALS: BP 106/69; PULSE 73; TEMP 36.9; O2SAT 96
--- NOTE | 2016-12-06 06:31 | Surgery Progress Note ---
Surgery Progress Note Date of Service Dec 06, 2016. Subjective resting comfortably Objective Vital Signs: Date Time Temp Pulse Resp B/P (MAP) Pulse Ox O2 Delivery O2 Flow Rate FiO2 12/05/16 23:35 Room Air 12/05/16 22:47 36.9 73 18 106/69 (81) 96 Room Air 12/05/16 15:45 Room Air 12/05/16 12:13 36.9 79 18 110/67 (81) 94 Room Air 12/05/16 07:48 36.8 81 18 113/74 (87) 97 Room Air 12/05/16 07:38 Room Air General Appearance: no apparent distress Incision(s): intact, drainage (serous) Assessment & Plan 12/06/16- pt stable on IV atbx- cult pending plan to hopefully d/c home today on po atbx- leave drain 12/05/16- s/p reexcision Lt breast tissue- h/o DCIS at margin had erythema of the Lt breast preop- cellulitis vs lymphedema- concern for infection- had seroma which was cultured- pending result. Continue on IV Clinda probable d/c tomorrow when cult results known leave drain 12/05/16- s/p reexcision Lt breast tissue- h/o DCIS at margin had erythema of the Lt breast preop- cellulitis vs lymphedema- concern for infection- had seroma which was cultured- pending result. Continue on IV Clinda probable d/c tomorrow when cult results known leave drain
[2016-12-06 07:45] VITALS: BP 127/80; PULSE 75; TEMP 36.8; O2SAT 99
[2016-12-06] MEDS: TOLTERODINE TARTRATE 1 MG TAB PO SCH (09:05)
[2016-12-06] MEDS: CLINDAMYCIN IV 600 MG in DEXTROSE 5% ADD-VANTAGE 50ML 50 ML IV SCH (09:05)
[2016-12-06] MEDS ORDERED: HYDR-5688 PO (10:07)
[2016-12-06] MEDS ORDERED: CLIN300C10 PO ×2 (10:11→10:17)
--- NOTE | 2016-12-06 10:14 | Discharge Instructions ---
Discharge Instructions Date of Service Dec 06, 2016. Admission Reason for Admission: Left Breast Ductal Carcinoma Discharge Discharge Diagnosis / Problem: Lt breast surgery Discharge Goals Goal(s): Decrease discomfort, Improve function, Improve disease control Activity Recommendations Activity Limitations: as noted below Lifting Limitations: no more than 25 pounds Exercise/Sports Limitations: until after follow-up appointment May Resume Sexual Activity: when tolerated Shower/Bathe: tomorrow Driving or Machine Use: resume 3 days after discharge SPECIAL CARE INSTRUCTIONS: * Cover incisions and change daily for comfort/drainage. * Empty drain 2-3 times per day and record. * May use ibuprofen for pain as tolerated. * Expect some swelling and bruising. Call your doctor if: * Temperature above 101 degrees * Pain not relieved by pain medicine ordered * There is increased drainage or redness from any incision * You have any unanswered questions or concerns [phone]. FOLLOW UP VISIT: If not already scheduled, please call the office for a follow-up visit. for 12/11- drain removal OFFICE PHONE NUMBER: Dr. Esteban Office . Current Hospital Diet Patient's current hospital diet: Regular Diet Discharge Diet Recommended Diet: Regular Diet Procedures Procedures Performed: Left Re-Excision Breast Tissue Pending Studies Studies pending at discharge: no Medical Emergencies . Who to Call and When: Medical Emergencies: If at any time you feel your situation is an emergency, please call 911 immediately. . Non-Emergent Contact Non-Emergency issues call your: Primary Care Provider, Surgeon . "Provider Documentation" section prepared by Olivier Esteban. . VTE Core Measure Inpt VTE Proph given/why not?: SCD's
[2016-12-06 10:23] VITALS: BP 127/80; PULSE 75; TEMP 36.8; O2SAT 99
[2016-12-06] MEDS: HYDROCODONE/ACETAMOPHEN 5/325MG TAB PO PRN (10:55)
--- NOTE | 2016-12-08 11:06 | DISCHARGE SUMMARY ---
PRIMARY DISCHARGE DIAGNOSIS: 1. Left breast ductal carcinoma in situ. 2. Seroma. SECONDARY DISCHARGE DIAGNOSES: Gastroesophageal reflux disease. PROCEDURE: Reexcision of left breast tissue/partial mastectomy with wound culture. CONSULTATIONS: Infectious disease, Dr. Rowell. HOSPITAL COURSE: The patient is a 66-year-old female recently underwent a left partial mastectomy with sentinel lymph node biopsy who had DCIS near the margin now brought back in through same day for reexcision. She did have a seroma which was drained and cultured. A KARMA drain was left. She was transferred to the surgical floor, started on IV clindamycin for broad-spectrum coverage. By postoperative day 2, she was stable for discharge. KARMA drainage was 10 mL overnight. Cultures had shown no growth. DISCHARGE INSTRUCTIONS: Discharge home. Follow up with Dr. Esteban's office in 5 days for removal of the drain. She was instructed on drain care. DISCHARGE MEDICATIONS: [place]uddie 1-2 tablets every 6 hours as needed, clindamycin 300 mg p.o. q.i.d. x5 days and resume home medications, Aleve 220 mg tablets as needed, Prilosec 20 mg as needed, Detrol-LA 1 mg daily, and Ultram 50 mg at bedtime as needed. MTDD
== END 2016-12-06 13:15 | disposition home or self-care (01) ==
LOC: C.ACU 05:46 → C.MSN 08:16 → ENRESERV 09:19
PROVIDERS: ADMIT Surgery; ATTEND Surgery
DX: D05.12 Intraductal carcinoma in situ of left breast (principal); E11.9 Type 2 diabetes mellitus without complications; K21.9 Gastro-esophageal reflux disease without esophagitis; R01.1 Cardiac murmur, unspecified; R93.1 Abnormal findings on diagnostic imaging of heart and coronary circulation; M21.70 Unequal limb length (acquired), unspecified site; R26.81 Unsteadiness on feet; R32 Unspecified urinary incontinence; Z79.899 Other long term (current) drug therapy; N60.92 Unspecified benign mammary dysplasia of left breast

== ENCOUNTER → 2017-03-14 | Outpatient (CLI) | payer OTHER ==
[~2017-03-14] MED LIST changes: -HYDR-5688 PO
[2017-03-14 14:47] VITALS: BP 132/77; PULSE 83; TEMP 37.1; O2SAT 96
--- NOTE | 2017-03-14 15:56 | Radiation Oncology Follow-Up ---
Radiation Oncology Follow-Up Date of Visit Mar 14, 2017. Reason For Visit One-month follow-up and cancer survivorship care plan. Radiation Completion Date 02/19/2017 Diagnosis (1) Breast cancer Onset Date: 08/23/2016 Permanent Comment: -Left breast biopsy - 08/23/2016 -Initial lumpectomy/SLN - Dr. Esteban - 11/06/2016 - (invasive mammary carcinoma, ER/ ME positive, Her2 negative, [id number]) - Positive DCIS margin -Re-excision for positive DCIS margin 12/05/2016, clear margins Status post completion of radiation therapy 2016. She received 5130 cGy utilizing hypo-fractionation Last Edited By: Angy Gomez on Mar 14, 2017 15:52 History of Present Illness Ms. Sutherland is a 67-year-old female who initially presented with intermittent bilateral breast pain since 2015. The patient was referred to have a bilateral diagnostic mammogram which was completed on 03/2017. The mammograms revealed a irregular hypoechoic 12 mm mass in the left breast at the 3 o'clock position with associated calcifications within the mass extending anteriorly and posteriorly. The patient underwent an ultrasound-guided biopsy of the left breast mass on which revealed invasive ductal carcinoma that measured 0.7 cm; the tumor was grade 2 and there is no lymphovascular space invasion. There was also ductal carcinoma in situ present with comedonecrosis that was grade 2. The tumor was estrogen receptor positive, progesterone receptor positive and HER-2 negative. The patient was seen in consultation by Dr. Olivier Esteban from surgery who recommended consideration of either mastectomy or lumpectomy followed by adjuvant radiation therapy. The patient was also seen by Dr. Gerardo Ha from medical oncology who did discuss the role of potential anti-hormonal therapy as well as chemotherapy; Dr. Ha recommended seeing patient back after she underwent surgery to review the final pathology. The patient underwent a left breast lumpectomy and sentinel lymph node biopsy on 11/06/2016. 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 There was ductal carcinoma in situ with comedonecrosis present. With respect to margins, margins were negative for invasive carcinoma in the closest margin was 5 mm and the margins were positive for ductal carcinoma in situ. At the time of surgery, Dr. Olivier Esteban did obtain an additional superior tissue to obtain negative margins. Dr. Esteban does plan to take the patient back to the operating room to ensure negative margins for the ductal carcinoma in situ. One sentinel lymph node was excised and was negative for metastatic carcinoma. The patient was staged as [id number]. We are now seeing the patient in consultation discuss the role of adjuvant radiation therapy. She underwent a reexcision on 12/05/2016. Margins were clear. She then returned to our office for a CT simulation and was a candidate for hypo -fractionation. She received 5130 cGy. The radiation was completed 02/14/2017. Interim History She continues to have fatigue. This is steadily improving. She did note approximate 2 weeks after completion of treatment that she would have to take a nap in the afternoon. She no longer requires the additional rest in the afternoon. This is steadily improving. She did develop some areas of redness especially under the breast. She denied any peeling. She has occasional mild discomfort. There is also some mild discomfort at the nipple. She's noted no masses and no change of the axilla. She has no swelling of her arm. Allergies Coded Allergies: Aspirin (Verified Allergy, Unknown, UNKNOWN, 12/04/16) SAW RUBBER CURER AND PAST AND INSTRUCTED NOT TO TAKE ASPIRIN Penicillins (Verified Allergy, Unknown, UNKNOWN, 12/04/16) CHILD AND TEENAGE YEARS...SAW RUBBER CURER AND REPORTED NEVER TO TAKE PCN Procaine (Verified Allergy, Unknown, UNKOWN, 11/21/16) Solution Coordinator instructed pt to never use Novocain Home Medications Scheduled Tolterodine Tartrate (Detrol LA), 1 MG PO DAILY Scheduled PRN Naproxen (Aleve), 2-4 TABS PO BID PRN for Pain Omeprazole (Prilosec), 20 MG PO DAILY PRN for Dyspepsia Tramadol (Ultram), 50 MG PO QAM PRN for Pain Review of Systems Gastrointestinal: Symptoms: WNL Oral: Symptoms: No Problems Respiratory: Symptoms: WNL Urinary: Symptoms: WNL Skin: Symptoms: Patchy,Moist Desquamation, Skin Folds And Creases, No Problems Breast: Right Upper Arm Measurement: 29.0 Right Mid Arm Measurement: 25.0 Right Wrist Measurement: 17.5 Left Upper Arm Measurement: 27.5 Left Mid Arm Measurement: 24.0 Left Wrist Measurement: 17.5 Arm Dominence: Right Physical Exam Vital Signs Date Time Temp Pulse Resp B/P (MAP) Pulse Ox O2 Delivery O2 Flow Rate FiO2 03/14/17 14:47 37.1 83 18 132/77 96 Pain: Patient Pain Scale: 0 - 10 Initial Pain Intensity: 0.0 Fatigue: None General Appearance: no apparent distress Eyes: normal inspection, EOMI ENT: normal ENT inspection, hearing grossly normal Neck: no adenopathy, thyroid normal Respiratory/Chest: lungs clear, no respiratory distress, no accessory muscle use Breast: Breast examination reveals well-healed incisions of the left breast. She has some resolving erythema in the inframammary fold. There is hyperpigmentation in the axilla. There are no areas of wet or dry desquamation. There is some hyperpigmentation of the keratotic lesions of the improved mammary fold. There are no skin retractions. There is some dryness of the skin and hyperpigmentation noted at the nipple. Using the [place]ouds[place] score cosmesis she has a fair outcome. The right breast showed no masses or tenderness and no axillary adenopathy. Cardiovascular: regular rate, rhythm, no gallop, no murmur Extremities: no pedal edema Neurologic/Psychiatric: no motor/sensory deficits, alert, normal mood/affect Skin: warm/dry Assessment & Plan Plan: Patient was also seen and examined by Dr. Hallman. She has a follow-up appointment with Dr. Ha on 03/27/2017. Continue follow-up with her breast surgeon. Today we completed a cancer survivorship care plan. A copy of the document was given to the patient. She was scheduled for digital diagnostic mammograms to be performed on the left breast in 2 months. She'll have bilateral mammography in 8 months. Recommendation was was given for over- the-counter moisturizing cream to the skin of her breast. She was reassured that the hyperpigmentation and changes in the inframammary fold will steadily improve over time. We asked her to return to our office in 6 months. She may call if she has any questions or concerns in the interim. Assessment & Plan (Attending) ADDENDUM: I agree with note created by Angy Gomez PA-C. I reviewed the patient's chart and information with her. I have examined and evaluated the patient. I reviewed relevant clinical information and answered the patient's and /or family's questions. SPA ATTENDANT Total Time In Follow-Up I spent 20 minutes speaking to the patient performing examination. I spent 20 minutes reviewing information, preparing the survivorship document, and completing this note. Total Time (Attending) In Follow-Up I spent 15 minutes examining and counseling the patient. SPA ATTENDANT Copy To Olivier Esteban M.D.; Gerardo Ha MD; Jose Manuel Stroud M.D. Problem Qualifiers (1) Breast cancer: Breast location: central portion of breast Estrogen receptor status: positive Patient sex: female Laterality: left Qualified Codes: C50.112 - Malignant neoplasm of central portion of left female breast; Z17.0 - Estrogen receptor positive status [ER+]
== END | disposition home or self-care (01) ==
LOC: C.ONC 14:33
PROVIDERS: ATTEND Physician Assistant Medical
DX: Z08 Encounter for follow-up examination after completed treatment for malignant neoplasm (principal); Z92.3 Personal history of irradiation; Z85.3 Personal history of malignant neoplasm of breast

== ENCOUNTER → 2017-03-19 | Outpatient (CLI) | payer OTHER ==
[2017-03-19 18:20] LABS: BASO % 0.8 %; BASO ABS # 0.05 K/uL (0-0.2); COMPLETE YES; EOS % 5.5 %; HEMATOCRIT 40.4 % (37-47); IG% 0.2 %; LYMPH % 29.4 %; LYMPH ABS # 1.81 K/uL (1.2-3.4); MEAN CELL VOLUME 91.4 fL (80-100); MEAN CORPUSCULAR HEMOGLOBIN 30.1 pg (25-34); MEAN CORPUSCULAR HGB CONC 32.9 g/dl (32-36); MEAN PLATELET VOLUME 11.8 fL (7.4-10.4); MONO % 8.8 %; NEUT % 55.3 %; PLATELET COUNT 204 K/uL (130-400); RED BLOOD COUNT 4.42 M/uL (4.2-5.4); WHITE BLOOD COUNT 6.15 K/uL (4.8-10.8)
[2017-03-19 18:30] LABS: ALT/SGPT 19 U/L (12-78); BLOOD UREA NITROGEN 25 mg/dl (7-18); BUN/CREATININE RATIO 44.3 (10-20); CALCIUM 8.9 mg/dl (8.5-10.1); CARBON DIOXIDE 26 mmol/L (21-32); CHLORIDE 107 mmol/L (98-107); CREATININE 0.56 mg/dl (0.60-1.20); GLUCOSE 120 mg/dl (70-99); POTASSIUM 4.1 mmol/L (3.5-5.1); SODIUM 140 mmol/L (136-145)
[2017-03-19 18:32] LABS: ALB/GLOB RATIO 1.3 (0.9-2); ALKALINE PHOSPHATASE 68 U/L (45-117); AST/SGOT 16 U/L (15-37)
== END | disposition home or self-care (01) ==
LOC: C.LABPVFM 11:38
PROVIDERS: ATTEND Internal Medicine Hematology & Oncology
DX: C50.919 Malignant neoplasm of unspecified site of unspecified female breast (principal)

== ENCOUNTER → 2017-03-27 | Outpatient (CLI) | payer OTHER | END | disposition home or self-care (01) | LOC: C.MAMM 09:39 | PROVIDERS: ATTEND Internal Medicine Hematology & Oncology | DX: C50.919 Malignant neoplasm of unspecified site of unspecified female breast (principal); M85.89 Other specified disorders of bone density and structure, multiple sites ==

== ENCOUNTER → 2017-05-14 | Outpatient (CLI) | payer OTHER ==
--- NOTE | 2017-05-15 07:43 | MAMMOGRAPHY REPORT ---
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 She presents to establish new base line in the left breast. TECHNIQUE: Left breast CC and MLO 2-D and tomosynthesis images, spot magnification left CC and ML vie ws were obtained. Current study was also evaluated with a Computer Aided Detection (CAD) system. COMPARISON: Comparison is made to exams dated: 11/06/2016 localization, 11/06/2016 mammogram, 11/06/2016 s pecimen, 08/23/2016 ultrasound biopsy, 08/23/2016 mammogram, and 08/10/2016 ultrasound - [facility]. BREAST COMPOSITION: There are scattered areas of fibroglandular density in the left breast. FINDINGS: There is expected architectural distortion in the lateral approximate 3:00 left breast and associated surgical clips, denoting the area of prior surgeries. No new suspicious mass, microcalcif ications, unexpected architectural distortion or developing asymmetry is identified in the left breas t. There is mild diffuse skin thickening, likely related to prior treatment. IMPRESSION: ACR-BI-RADS CATEGORY 3: PROBABLY BENIGN There are expected post surgical/post treatment changes in the left breast status post lobectomy and radiation therapy. No definite mammographic evidence of malignancy. A short interval follow-up left diagnostic tomosynthesis mammogram including spot magnification views of the surgical site is recomm ended to ensure stability in 6 months. Annual right mammography will be due at that time. These results and recommendations were discussed with the patient at the time of the exam. Approximately 10% of breast cancers are not detected with mammography. A negative mammographic report should not delay biopsy if a clinically suggestive mass is present. Gypsy Jade M.D. ay/:05/14/2017 15:15:17 Dispensary Technician: Everton PEREZ(Maren)(M), [facility] letter sent: Follow Up Recommended 3 BI-RADS Code: ACR-BI-RADS Category 3: Probably Benign
== END | disposition home or self-care (01) ==
LOC: C.MAMM 14:05
PROVIDERS: ATTEND Physician Assistant Medical
DX: Z85.3 Personal history of malignant neoplasm of breast (principal); Z08 Encounter for follow-up examination after completed treatment for malignant neoplasm; Z92.3 Personal history of irradiation; Z98.890 Other specified postprocedural states

== ENCOUNTER → 2017-05-21 | Outpatient (CLI) | payer OTHER ==
[2017-05-21 17:39] LABS: HEMATOCRIT 43.1 % (37-47); MEAN CELL VOLUME 91.3 fL (80-100); MEAN CORPUSCULAR HEMOGLOBIN 30.5 pg (25-34); MEAN CORPUSCULAR HGB CONC 33.4 g/dl (32-36); MEAN PLATELET VOLUME 11.5 fL (7.4-10.4); PLATELET COUNT 212 K/uL (130-400); RED BLOOD COUNT 4.72 M/uL (4.2-5.4); WHITE BLOOD COUNT 7.42 K/uL (4.8-10.8)
[2017-05-21 18:05] LABS: ALT/SGPT 20 U/L (12-78); BLOOD UREA NITROGEN 23 mg/dl (7-18); BUN/CREATININE RATIO 37.6 (10-20); CARBON DIOXIDE 29 mmol/L (21-32); CHLORIDE 102 mmol/L (98-107); CHOLESTEROL 194 mg/dl (0-200); CREATININE 0.62 mg/dl (0.60-1.20); GLUCOSE 105 mg/dl (70-99); POTASSIUM 3.9 mmol/L (3.5-5.1); SODIUM 137 mmol/L (136-145)
[2017-05-21 18:08] LABS: ALB/GLOB RATIO 1.2 (0.9-2); ALKALINE PHOSPHATASE 76 U/L (45-117); AST/SGOT 15 U/L (15-37); CHOLESTEROL/HDL RATIO 1.9; HDL CHOLESTEROL 103 mg/dl; LDL CHOLESTEROL CALCULATED 79 mg/dl; TRIGLYCERIDES 62 mg/dl (0-150); VERY LOW DENSITY LIPOPROT CALC 12 mg/dl
[2017-05-22 05:58] LABS: ESTIMATED AVERAGE GLUCOSE 137 mg/dl; HA1C FLAG Normal (Normal)
== END | disposition home or self-care (01) ==
LOC: C.LABPVFM 12:04
PROVIDERS: ATTEND Internal Medicine
DX: Z00.00 Encounter for general adult medical examination without abnormal findings (principal); C50.912 Malignant neoplasm of unspecified site of left female breast; E11.9 Type 2 diabetes mellitus without complications

== ENCOUNTER → 2017-06-22 | Outpatient (CLI) | payer OTHER ==
[2017-06-22 17:45] LABS: BASO % 0.6 %; BASO ABS # 0.05 K/uL (0-0.2); COMPLETE YES; EOS % 3.4 %; HEMATOCRIT 41.6 % (37-47); IG% 0.1 %; LYMPH % 22.3 %; LYMPH ABS # 1.86 K/uL (1.2-3.4); MEAN CELL VOLUME 93.1 fL (80-100); MEAN CORPUSCULAR HEMOGLOBIN 30.9 pg (25-34); MEAN CORPUSCULAR HGB CONC 33.2 g/dl (32-36); MEAN PLATELET VOLUME 11.8 fL (7.4-10.4); MONO % 10.2 %; NEUT % 63.4 %; PLATELET COUNT 218 K/uL (130-400); RED BLOOD COUNT 4.47 M/uL (4.2-5.4); WHITE BLOOD COUNT 8.33 K/uL (4.8-10.8)
[2017-06-22 17:54] LABS: ALT/SGPT 21 U/L (12-78); AST/SGOT 15 U/L (15-37); BLOOD UREA NITROGEN 25 mg/dl (7-18); BUN/CREATININE RATIO 46.5 (10-20); CALCIUM 8.8 mg/dl (8.5-10.1); CARBON DIOXIDE 29 mmol/L (21-32); CHLORIDE 104 mmol/L (98-107); CREATININE 0.54 mg/dl (0.60-1.20); GLUCOSE 103 mg/dl (70-99); SODIUM 136 mmol/L (136-145)
[2017-06-22 17:56] LABS: ALB/GLOB RATIO 1.1 (0.9-2); ALKALINE PHOSPHATASE 71 U/L (45-117)
== END | disposition home or self-care (01) ==
LOC: C.LABPVFM 12:41
PROVIDERS: ATTEND Internal Medicine Hematology & Oncology
DX: C50.812 Malignant neoplasm of overlapping sites of left female breast (principal)

== ENCOUNTER → 2018-02-08 | Outpatient (CLI) | payer OTHER ==
[2018-02-08 16:36] LABS: HEMATOCRIT 40.7 % (37-47); HEMOGLOBIN 13.5 g/dL (12.0-16.0); MEAN CELL VOLUME 90.4 fL (80-100); MEAN CORPUSCULAR HGB CONC 33.2 g/dl (32-36); MEAN PLATELET VOLUME 12.3 fL (7.4-10.4); PLATELET COUNT 204 K/uL (130-400); RED CELL DISTRIBUTION WIDTH CV 13.3 % (11.5-14.5); RED CELL DISTRIBUTION WIDTH SD 43.8 fL (36.4-46.3); WHITE BLOOD COUNT 8.19 K/uL (4.8-10.8)
[2018-02-08 17:06] LABS: ALBUMIN 4.3 gm/dl (3.4-5.0); ALKALINE PHOSPHATASE 77 U/L (45-117); ALT/SGPT 19 U/L (12-78); AST/SGOT 17 U/L (15-37); BLOOD UREA NITROGEN 24 mg/dl (7-18); CALCIUM 9.3 mg/dl (8.5-10.1); CARBON DIOXIDE 25 mmol/L (21-32); CHOLESTEROL 189 mg/dl (0-200); CREATININE 0.63 mg/dl (0.60-1.20); GLUCOSE 106 mg/dl (70-99); LDL CHOLESTEROL CALCULATED 90 mg/dl; POTASSIUM 3.8 mmol/L (3.5-5.1); SODIUM 141 mmol/L (136-145); TOTAL PROTEIN 8.4 gm/dl (6.4-8.2)
[2018-02-09 07:09] LABS: HEMOGLOBIN A1C 6.4 % (4.5-5.6)
== END | disposition home or self-care (01) ==
LOC: C.LABBC 14:51
PROVIDERS: ATTEND Internal Medicine
DX: Z00.00 Encounter for general adult medical examination without abnormal findings (principal); R73.01 Impaired fasting glucose; C50.912 Malignant neoplasm of unspecified site of left female breast; M19.90 Unspecified osteoarthritis, unspecified site

== ENCOUNTER 2023-01-24 14:19 | Inpatient (IN) ==
--- NOTE | 2023-01-24 14:23 | ED Triage Note ---
Date of Service January 24, 2023 History of Present Illness This patient was briefly evaluated while in triage. An abbreviated physical exam was performed. This patient is a 72-year-old Female who presents to the ED for evaluation of worsening bilateral leg wounds. Referred by PCP for IV abx. Denies recent abx. Reports nauseas otherwise has been feeling well. Denies fevers/chills. Performing local wound care at home with assistance of . Physical Exam Constitutional: alert and oriented x3. no acute distress. HEENT: normocephalic, atraumatic. normal conjunctiva.PERRLA. EOM's grossly intact. Respiratory: lungs are clear to auscultation without wheezes, rhonchi, or rales bilaterally. equal chest rise. normal respiratory effort, no accessory muscle use. Cardiovascular: normal heart sounds without murmur. regular rate and rhythm. GI: abdomen is soft, nontender. No palpable masses. No rebound tenderness or guarding. MSK: moves all 4 extremities spontaneously. Lower legs with dry dressings intact Psych:appropriate mood and affect. Initial orders for labs and / or imaging were placed and patient was placed in the waiting area until a bed is available. Please see further documentation for the full ED course.
[2023-01-24 15:30] LABS: Basophils # (auto) 0.09 K/uL (0-0.2); Basophils % (auto) 0.6 %; Eosinophils # (auto) 0.41 K/uL (0-0.50); Eosinophils % (auto) 2.7 %; Hematocrit (blood only) 36.4 % (37.0-47.0); Hemoglobin 11.9 g/dl (12.0-16.0); Immature Granulocytes # (auto) 0.13 K/uL (0.01-0.20); Immature Granulocytes % (auto) 0.9 %; Lymphocytes % (auto) 11.2 %; Mean Corpuscular Hemoglobin 27.1 pg (25.0-34.0); Mean Corpuscular Hgb Conc 32.7 g/dL (32.0-36.0); Mean Corpuscular Volume 82.9 fL (80.0-100.0); Mean Platelet Volume 9.8 fL (9.4-12.4); Monocytes # (auto) 1.09 K/uL (0.11-0.59); Monocytes % (auto) 7.2 %; Neutrophils # (auto) 11.78 K/uL (1.40-6.50); Neutrophils % (auto) 77.4 %; Platelet Count 345 K/uL (130-400); RDW Coefficient of Variation 14.4 % (11.5-14.5); RDW Standard Deviation 44.2 fL (36.4-46.3); Red Blood Count 4.39 M/uL (4.20-5.40)
[2023-01-24 15:46] LABS: Alanine Aminotransferase 18 U/L (7-52); Albumin Globulin Ratio 0.7 (0.9-2); Albumin Level 3.7 gm/dl (3.4-5.0); Alkaline Phosphatase 141 U/L (34-104); Anion Gap 10 (3-11); Aspartate Aminotransferase 17 U/L (13-39); BUN Creatinine Ratio 24.3 (10-20); Bilirubin,Total 0.4 mg/dl (0.2-1.0); Blood Urea Nitrogen 17 mg/dl (6-23); Calcium 9.4 mg/dl (8.6-10.3); Carbon Dioxide 26 mmol/L (21-32); Chloride 97 mmol/L (98-107); Est GFR (Non-African American) 87.2 ml/min; Globulin 5.1 gm/dl (2.5-4.0); Glucose 155 mg/dl (70-99(Fasting)); Potassium 3.8 mmol/L (3.5-5.1); Sodium 133 mmol/L (136-145); Total Protein 8.8 gm/dl (6.0-8.3)
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
--- NOTE | 2023-01-24 17:17 | XRay Report ---
XR tibia fibula RT 2V CLINICAL HISTORY: b/l cellulitis, wounds COMPARISON: Knee radiographs February 23, 2021. FINDINGS: No fracture within the right tibia or fibula is identified. No bony erosions are identifie d. Moderate to severe right knee osteoarthritis is incidentally noted. There is right lower leg soft tissue swelling. No radiographic evidence for soft tissue gas. IMPRESSION: 1. No fractures within the right tibia or fibula. No radiographic evidence for acute osteomyelitis. 2. Right lower leg soft tissue swelling. ACT 112: Negative or not required by law. Electronically signed by: Germán Wall M.D. 01/24/2023 5:16 PM
--- NOTE | 2023-01-24 17:26 | XRay Report ---
XR tibia fibula LT 2V CLINICAL HISTORY: b/l cellulitis, wounds COMPARISON: Left knee radiographs September 03, 2019. FINDINGS: Severe left knee osteoarthritis is incidentally noted. There is no acute fracture within t he left tibia or fibula. No bony erosions are identified. Left lower leg soft tissue swelling is note d. IMPRESSION: 1. No fracture or evidence for acute osteomyelitis within the left tibia or fibula. 2. Left lower leg soft tissue swelling. 3. Severe left hip osteoarthritis. ACT 112: Negative or not required by law. Electronically signed by: Germán Wall M.D. 01/24/2023 5:24 PM
[2023-01-24] MEDS: DAPTOmycin 350 MG in SYRINGE 0 ML IV SCH (17:43)
[2023-01-24] MEDS: MEROPENEM 500 MG in SYRINGE 0 ML IV SCH ×2 (17:54→23:09)
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
[2023-01-24] MEDS ORDERED: DEXTROSE 50% 50 ML SYRINGE IV PRN (18:55)
[2023-01-24] MEDS ORDERED: PHARMACY GLYCEMIC MGMT CONSULT PRN (18:55)
[2023-01-24] MEDS ORDERED: GLUCOSE 10 TAB/TUBE PO PRN (18:55)
[2023-01-24] MEDS ORDERED: GLUCOSE 40% GEL 15 GM TUBE PO PRN (18:55)
[2023-01-24] MEDS ORDERED: GLUCAGON FOR INJ 1 MG VIAL SQ PRN (18:55)
[2023-01-24] MEDS ORDERED: CARBOHYDRATES FOR HYPOGLYCEMIA PO PRN (18:55)
[2023-01-24 20:09] LABS: C Reactive Protein 22.44 mg/dl (0-0.5)
[2023-01-24] MEDS: INSULIN ASPART PER UNIT CHARGE SC SCH (20:14)
[2023-01-24] MEDS ORDERED: LANTUS PER UNIT CHARGE SQ SCH (21:00)
[2023-01-24] MEDS ORDERED: ACETAMINOPHEN 325 MG TAB PO PRN (21:06)
[2023-01-24] MEDS ORDERED: PANTOprazole 40 MG TAB PO PRN (21:13)
[2023-01-24] MEDS: ENOXAPARIN INJ 40 MG/0.4 ML SYR SQ SCH (23:08)
[2023-01-25] MEDS: traMADol HCL 50 MG TABLET PO PRN ×2 (00:58→08:29)
[2023-01-25] MEDS: ACETAMINOPHEN 325 MG TAB PO PRN ×3 (00:58→23:40)
--- NOTE | 2023-01-25 00:59 | Ultrasound Report ---
Exam(s): US VENOUS LEFT LOWER EXTREMITY EXAM: US Duplex Left Lower Extremity Veins CLINICAL HISTORY: Reason for exam: LLE more swollen and erythematous. TECHNIQUE: Real-time duplex ultrasound scan of the left lower extremity veins integrating B-mode two-dimensional vascular structure, Doppler spectral analysis, color flow Doppler imaging and compression. COMPARISON: No relevant prior studies available. FINDINGS: Deep veins: Unremarkable. No DVT in the visualized common femoral, femoral, proximal deep femoral or popliteal veins. The veins demonstrate normal color flow, are normally compressible, with normal phasic flow and/or augmentation response. Superficial veins: Unremarkable. No thrombus in the visualized great saphenous vein. Soft tissues: No acute findings. No popliteal cyst. IMPRESSION: Normal left lower extremity duplex venous ultrasound. Electronically signed by: Michael Ramos MD 01/25/23 00:58 AM
[2023-01-25] MEDS: MEROPENEM 500 MG in SYRINGE 0 ML IV SCH ×4 (05:43→23:15)
[2023-01-25 06:57] LABS: Basophils # (auto) 0.08 K/uL (0-0.2); Basophils % (auto) 0.6 %; Eosinophils # (auto) 0.39 K/uL (0-0.50); Hematocrit (blood only) 29.8 % (37.0-47.0); Hemoglobin 9.9 g/dl (12.0-16.0); Immature Granulocytes # (auto) 0.17 K/uL (0.01-0.20); Immature Granulocytes % (auto) 1.3 %; Lymphocytes # (auto) 1.91 K/uL (1.2-3.4); Lymphocytes % (auto) 14.6 %; Mean Corpuscular Hemoglobin 26.9 pg (25.0-34.0); Mean Corpuscular Hgb Conc 33.2 g/dL (32.0-36.0); Mean Platelet Volume 9.8 fL (9.4-12.4); Monocytes # (auto) 1.66 K/uL (0.11-0.59); Monocytes % (auto) 12.7 %; Neutrophils # (auto) 8.85 K/uL (1.40-6.50); Neutrophils % (auto) 67.8 %; Platelet Count 282 K/uL (130-400); RDW Coefficient of Variation 14.5 % (11.5-14.5); RDW Standard Deviation 42.5 fL (36.4-46.3); Red Blood Count 3.68 M/uL (4.20-5.40); White Blood Count 13.06 K/ul (4.8-10.8)
[2023-01-25 07:32] LABS: Albumin Globulin Ratio 0.7 (0.9-2); Albumin Level 2.7 gm/dl (3.4-5.0); BUN Creatinine Ratio 21.7 (10-20); Bilirubin,Total 0.3 mg/dl (0.2-1.0); Calcium 8.2 mg/dl (8.6-10.3); Creatinine Clr Calc Pharmacy 87.9 ml/min; Est GFR (African American) 106.3 ml/min; Est GFR (Non-African American) 91.7 ml/min; Globulin 3.8 gm/dl (2.5-4.0); Potassium 3.3 mmol/L (3.5-5.1); Total Protein 6.5 gm/dl (6.0-8.3)
[2023-01-25] MEDS ORDERED: POTASSIUM CHLORIDE CRTAB 20 MEQ TABCR PO ONE (08:03)
[2023-01-25] MEDS: ASPIRIN 81 MG ECTAB PO SCH (08:23)
[2023-01-25] MEDS: LETROZOLE 2.5 MG TAB PO SCH (08:23)
[2023-01-25] MEDS: OXYBUTYNIN CHLORIDE XL 5 MG TABCR PO SCH (08:23)
[2023-01-25] MEDS: INSULIN ASPART PER UNIT CHARGE SC SCH ×4 (08:28→23:07)
[2023-01-25] MEDS ORDERED: LANTUS PER UNIT CHARGE SQ SCH (09:00)
[2023-01-25] MEDS ORDERED: EMPAGLIFLOZIN 10 MG TAB PO SCH (09:00)
[2023-01-25] MEDS ORDERED: SITagliptin PHOSPHATE 25 MG TAB PO SCH (09:00)
--- NOTE | 2023-01-25 09:09 | Ultrasound Report ---
RIGHT LOWER EXTREMITY ARTERIAL DOPPLER ULTRASOUND CLINICAL HISTORY: Right lower extremity wound COMPARISON STUDY: No previous studies for comparison. TECHNIQUE: Grayscale, color and duplex Doppler sonography of the arterial system of the right lower e xtremity was performed. FINDINGS: There is biphasic flow within the right common femoral artery. There is a mildly elevated [place] systolic velocity of 216 cm/s within the right common femoral artery. No additional elevated [place] within the right lower extremity are noted. There is monophasic flow within the right superfic ial femoral, popliteal, anterior tibial, posterior tibial, peroneal and dorsalis pedis vessels. These vessels were patent. There is mild atherosclerotic plaque within the right lower extremity. IMPRESSION: 1. Mild atherosclerotic plaque within the right lower extremity. 2. Mildly elevated velocity within the right common femoral artery. This may reflect an underlying st enosis. 3. Patent right lower extremity vessels. However, monophasic flow within the right calf vessels, as a kierra. ACT 112: Negative or not required by law. Electronically signed by: Germán Wall M.D. 01/25/2023 9:07 AM
[2023-01-25] MEDS: PANTOprazole 40 MG TAB PO SCH (10:36)
--- NOTE | 2023-01-25 11:29 | Hospitalist Progress Note ---
Date of Service January 25, 2023 Assessment & Plan (1) Bilateral lower leg cellulitis: Plan: Currently on daptomycin and meropenem, day 2. Surgical consultation pending. (2) Wound of right lower extremity: Plan: Wound care nurse consultation and management appreciated (3) Lymphedema of both lower extremities: Plan: Due to chronic venous insufficiency. Leg elevation. Supportive care. Venous Doppler left lower extremity negative for DVT (4) Breast cancer: Plan: S/P left lumpectomy and radiation therapy. Currently on letrozole (5) DM II (diabetes mellitus, type II), controlled: Plan: ADA diet. Sliding scale coverage as needed. Metformin was recently started and will be continued. The Lantus that was started on admission has been discontinued (6) Esophageal reflux: Plan: Stable. Pantoprazole replaces omeprazole while hospitalized Plan To be determined. OT and PT assessments requested Admission and Anticipated Discharge Date Admission Date: January 24, 2023 Subjective Alert and oriented. No distress. She has previously attempted to control her diet with diet alone. Metformin metformin was recently started and will be continued. Lantus started on admission has been stopped. Left lower extremity venous Dopplers negative. Arterial Doppler of the left lower extremity reveals noncritical disease. She remains on intravenous daptomycin and meropenem, day 2. Surgery consultation is pending. Potassium replacement given today, January 25. OT and PT assessments requested Review of Systems Review of Systems: Constitutional-no fever or chills ENT-no blurred vision, no double vision, no epistaxis, no sore throat Respiratory-no cough, no wheezing, no shortness of breath Cardiac-no palpitations, no chest pain, no syncope GI-no nausea, vomiting, diarrhea, melena, hematochezia -no urinary retention, no urinary incontinence, no dysuria, no hematuria Musculoskeletal-chronic venous insufficiency bilateral lower extremities with evidence of cellulitic changes. Skin-no bruising, no rashes, no pruritus Neuro-generalized weakness. No focal deficits Psych-no depression, no anxiety Physical Exam Physical Exam: General-alert and oriented x3, no fevers, no chills HEENT-head atraumatic and normocephalic, pupils equal and reactive to light, extraocular muscles intact Neck-no lymphadenopathy or thyromegaly, trachea midline Chest-clear to auscultation percussion. No rales wheezing or rhonchi Cardiac-regular rate and rhythm, normal S1 and S2, no murmurs Abdomen-normal bowel sounds, nontender, no hepatosplenomegaly Extremities-chronic appearing edema and stasis ulcerations bilateral lower extremities with evidence of cellulitic changes Neuro-cranial nerves II through XII intact, motor and sensory function within normal limits, strength symmetrical with generalized weakness , no focal deficits Psych-normal affect, normal mood Results & Data Results & Data Vital Signs (Past 12 Hours) Vital Signs Temp Pulse Pulse Resp BP Pulse Ox O2 Del Method 01/25/23 07:00 96 H 01/25/23 07:54 37.1 C 98 H 16 101/60 96 Room Air 01/25/23 02:05 111 H 01/25/23 03:30 36.9 C 110 H 20 122/69 98 Room Air 01/25/23 01:00 110 H 16 100/80 96 Room Air Laboratory Results 01/25/23 06:28 01/25/23 06:28 PG Care Time/CCT Total # of Minutes Spent Total Time Spent with Patient: Total time spent is greater than 50% in coordination of care (as documented) at patient's floor/unit and/or counseling patient: Coding Level of Care Code 66937 SUB INP/OBS CARE 3/50MIN Diagnoses Bilateral lower leg cellulitis L03.116; L03.115 Wound of right lower extremity S81.801A Lymphedema of both lower extremities I89.0 Breast cancer C50.112; Z17.0 Breast location: central portion of breast Estrogen receptor status: positive Patient sex: female Laterality: left DM II (diabetes mellitus, type II), controlled E11.9 Esophageal reflux K21.9 (4) Breast cancer Breast location: central portion of breast Estrogen receptor status: positive Patient sex: female Laterality: left Qualified Code(s): C50.112 - Malignant neoplasm of central portion of left female breast; Z17.0 - Estrogen receptor positive status [ER+]
[2023-01-25] MEDS ORDERED: INSULIN ASPART PER UNIT CHARGE SC SCH (11:30)
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
[2023-01-25] MEDS ORDERED: MoRPHine SULFATE 2 MG/ML CARP IV STA (13:41)
--- NOTE | 2023-01-25 14:24 | Post Operative Brief Note ---
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
--- NOTE | 2023-01-25 14:27 | Operative Report ---
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 pt has chronic wound on bilateral lower legs, I recommend to do debridement wound on bilateral lower legs at bedside. D/W benefits, risks and alternatives of the surgery, the risks- infection, bleeding, recurrence. may need more surgery. pt understood, she agreed with surgery, she signed informed consent, I answered all questions. Description of Procedure After the identified patient verify procedure, patient received 2 g of morphine IV for pain control. propped and dropped in routine fashion on the left side of the lower leg wound. there are some chronic necrotic tissue and cellulitis, then I used scissor to move chronic necrotic tissue, the wound size about 3x3cm, the wound is fresh now with minimal bleeding on the wound, then I put dressing on. now we move on to right lower wound, the wound size about 5x5cm, propped and dropped in routine fashion on the right side lower wound. there are some chronic necrotic tissue and cellulitis, then I used scissor to move chronic necrotic tissue, , the wound is fresh now with minimal bleeding on the wound, then I put dressing on. pt tolerated the procedure well. will F/U, continue iv antibiotic. I attest to the content of the Intraoperative Record and any orders documented therein. Any exceptions are noted below. Supervising Physician Co-Signing Physician Notes I personally saw and examined the patient. I verified all perdomo points and agree with Darian Sue PA-C with the following exceptions and/or additions: 72 year old female presents to the ER due to worsening erythema and swelling of b/l LE. Recommend to come to ER by her PCP. O/E A&Ox3, no respiratory distress, Abdo SNT, b/l pitting leg edema 2+ left > 1+ right, ulcer unstageable on posterior right calf approximately 3cm in diameter, weak DP pulse on right compared to left side, large toenails with fungal changes between all toes A/P Unstageable diabetic ulcer on right calf with surrounding cellulitis - consult surgery, wound culture, blood cultures, meropenem + daptomycin, US arterial doppler due to weak DP pulse on this side compared to left LLE cellulitis - less severe than right side but also appears cellulitic vs. venous stasis LLE swelling - > right side, r/o DVT with US venous doppler
[2023-01-25] MEDS: DAPTOmycin 350 MG in SYRINGE 0 ML IV SCH (17:19)
[2023-01-25] MEDS: metFORMIN HCL ER 500 MG TABCR PO SCH (23:07)
[2023-01-25] MEDS: ENOXAPARIN INJ 40 MG/0.4 ML SYR SQ SCH (23:09)
[2023-01-26] MEDS: MEROPENEM 500 MG in SYRINGE 0 ML IV SCH ×4 (06:15→21:27)
[2023-01-26] MEDS ORDERED: metFORMIN HCL 500 MG TAB PO SCH (08:00)
[2023-01-26] MEDS: INSULIN ASPART PER UNIT CHARGE SC SCH ×4 (08:19→21:23)
[2023-01-26 08:28] LABS: BUN Creatinine Ratio 17.8 (10-20); Calcium 8.6 mg/dl (8.6-10.3); Creatinine Clr Calc Pharmacy 73.3 ml/min; Est GFR (Non-African American) 82.9 ml/min; Potassium 4.1 mmol/L (3.5-5.1)
[2023-01-26] MEDS: OXYBUTYNIN CHLORIDE XL 5 MG TABCR PO SCH (08:29)
[2023-01-26] MEDS: PANTOprazole 40 MG TAB PO SCH (08:29)
[2023-01-26] MEDS: ASPIRIN 81 MG ECTAB PO SCH (08:29)
[2023-01-26] MEDS: LETROZOLE 2.5 MG TAB PO SCH (08:29)
[2023-01-26 09:10] LABS: Basophils # (auto) 0.11 K/uL (0-0.2); Eosinophils # (auto) 0.36 K/uL (0-0.50); Eosinophils % (auto) 3.1 %; Hematocrit (blood only) 32.3 % (37.0-47.0); Hemoglobin 10.3 g/dl (12.0-16.0); Immature Granulocytes % (auto) 2.6 %; Lymphocytes # (auto) 2.33 K/uL (1.2-3.4); Lymphocytes % (auto) 20.2 %; Mean Corpuscular Hemoglobin 26.8 pg (25.0-34.0); Mean Corpuscular Hgb Conc 31.9 g/dL (32.0-36.0); Mean Corpuscular Volume 83.9 fL (80.0-100.0); Mean Platelet Volume 10.4 fL (9.4-12.4); Monocytes # (auto) 1.37 K/uL (0.11-0.59); Monocytes % (auto) 11.9 %; Neutrophils # (auto) 7.07 K/uL (1.40-6.50); Neutrophils % (auto) 61.2 %; Platelet Count 320 K/uL (130-400); RDW Coefficient of Variation 14.5 % (11.5-14.5); RDW Standard Deviation 44.1 fL (36.4-46.3); Red Blood Count 3.85 M/uL (4.20-5.40); White Blood Count 11.54 K/ul (4.8-10.8)
[2023-01-26] MEDS: traMADol HCL 50 MG TABLET PO PRN ×2 (13:26→21:32)
--- NOTE | 2023-01-26 14:36 | Hospitalist Progress Note ---
Date of Service January 26, 2023 Assessment & Plan (1) Bilateral lower leg cellulitis: Plan: Currently on daptomycin and meropenem, day 3. 2 different gram-negative rods isolated. Identification and sensitivities pending. She underwent surgical debridement of both legs at the bedside yesterday, January 25. (2) Wound of right lower extremity: Plan: Wound care nurse consultation and management appreciated (3) Lymphedema of both lower extremities: Plan: Due to chronic venous insufficiency. Leg elevation. Supportive care. Venous Doppler left lower extremity negative for DVT. No critical arterial obstruction seen on arterial Doppler study (4) Breast cancer: Plan: S/P left lumpectomy and radiation therapy. Currently on letrozole (5) DM II (diabetes mellitus, type II), controlled: Plan: ADA diet. Sliding scale coverage as needed. Metformin was recently started and will be continued. The Lantus that was started on admission has been discontinued . Fasting glucose this morning 145 which is acceptable (6) Esophageal reflux: Plan: Stable. Pantoprazole replaces omeprazole while hospitalized Plan Hopeful discharge to home on oral antibiotic with home health services and home wound care going forward Admission and Anticipated Discharge Date Admission Date: January 24, 2023 Subjective Alert and oriented. No distress. is at the bedside. She underwent bedside debridement of the leg ulcerations yesterday, January 25. Mild hypokalemia has been corrected. Wound cultures growing 2 different gram-negative's. Further identification and sensitivities pending. Glucose 145 now on metformin ER. She is using tramadol as needed for pain. Continue intravenous daptomycin and meropenem for now Review of Systems Review of Systems: Constitutional-no fever or chills ENT-no blurred vision, no double vision, no epistaxis, no sore throat Respiratory-no cough, no wheezing, no shortness of breath Cardiac-no palpitations, no chest pain, no syncope GI-no nausea, vomiting, diarrhea, melena, hematochezia -no urinary retention, no urinary incontinence, no dysuria, no hematuria Musculoskeletal-bilateral lower extremities are heavily bandaged below the knees . Skin-no bruising, no rashes, no pruritus Neuro-generalized weakness. No focal deficits Psych-no depression, no anxiety Physical Exam Physical Exam: General-alert and oriented x3, no fevers, no chills HEENT-head atraumatic and normocephalic, pupils equal and reactive to light, extraocular muscles intact Neck-no lymphadenopathy or thyromegaly, trachea midline Chest-clear to auscultation percussion. No rales wheezing or rhonchi Cardiac-regular rate and rhythm, normal S1 and S2, no murmurs Abdomen-normal bowel sounds, nontender, no hepatosplenomegaly Extremities-chronic appearing edema and stasis ulcerations bilateral lower extremities with evidence of cellulitic changes Neuro-cranial nerves II through XII intact, motor and sensory function within normal limits, strength symmetrical with generalized weakness , no focal deficits Psych-normal affect, normal mood Results & Data Results & Data Vital Signs (Past 12 Hours) Vital Signs Temp Pulse Pulse Resp BP Pulse Ox O2 Del Method 01/26/23 13:50 Room Air 01/26/23 08:00 88 01/26/23 10:48 36.8 C 95 H 16 110/68 99 Room Air 01/26/23 08:12 36.8 C 102 H 16 126/70 100 Room Air 01/26/23 02:35 37 C 97 H 16 128/75 96 Room Air Laboratory Results 01/26/23 06:25 01/26/23 06:25 PG Care Time/CCT Total # of Minutes Spent Total Time Spent with Patient: Total time spent is greater than 50% in coordination of care (as documented) at patient's floor/unit and/or counseling patient: Coding Level of Care Code 57370 SUB INP/OBS CARE 3/50MIN Diagnoses Bilateral lower leg cellulitis L03.116; L03.115 Wound of right lower extremity S81.801A Lymphedema of both lower extremities I89.0 Breast cancer C50.112; Z17.0 Breast location: central portion of breast Estrogen receptor status: positive Patient sex: female Laterality: left DM II (diabetes mellitus, type II), controlled E11.9 Esophageal reflux K21.9 (4) Breast cancer Breast location: central portion of breast Estrogen receptor status: positive Patient sex: female Laterality: left Qualified Code(s): C50.112 - Malignant neoplasm of central portion of left female breast; Z17.0 - Estrogen receptor positive status [ER+]
[2023-01-26] MEDS: ENOXAPARIN INJ 40 MG/0.4 ML SYR SQ SCH (21:27)
[2023-01-26] MEDS: metFORMIN HCL ER 500 MG TABCR PO SCH (21:28)
[2023-01-27] MEDS: MEROPENEM 500 MG in SYRINGE 0 ML IV SCH ×4 (05:00→21:32)
[2023-01-27 06:16] LABS: Basophils # (auto) 0.12 K/uL (0-0.2); Basophils % (auto) 0.9 %; Eosinophils # (auto) 0.39 K/uL (0-0.50); Hematocrit (blood only) 30.7 % (37.0-47.0); Immature Granulocytes # (auto) 0.24 K/uL (0.01-0.20); Immature Granulocytes % (auto) 1.8 %; Lymphocytes # (auto) 2.59 K/uL (1.2-3.4); Lymphocytes % (auto) 19.7 %; Mean Corpuscular Hemoglobin 27.1 pg (25.0-34.0); Mean Corpuscular Hgb Conc 32.6 g/dL (32.0-36.0); Mean Corpuscular Volume 83.2 fL (80.0-100.0); Mean Platelet Volume 9.8 fL (9.4-12.4); Monocytes # (auto) 1.64 K/uL (0.11-0.59); Monocytes % (auto) 12.5 %; Neutrophils # (auto) 8.18 K/uL (1.40-6.50); Neutrophils % (auto) 62.1 %; Platelet Count 302 K/uL (130-400); RDW Coefficient of Variation 14.6 % (11.5-14.5); RDW Standard Deviation 44.7 fL (36.4-46.3); Red Blood Count 3.69 M/uL (4.20-5.40); White Blood Count 13.16 K/ul (4.8-10.8)
[2023-01-27 06:27] LABS: BUN Creatinine Ratio 29.3 (10-20); Calcium 8.2 mg/dl (8.6-10.3); Creatinine Clr Calc Pharmacy 92.3 ml/min; Est GFR (African American) 107.5 ml/min; Est GFR (Non-African American) 92.7 ml/min; Potassium 3.8 mmol/L (3.5-5.1)
[2023-01-27] MEDS: INSULIN ASPART PER UNIT CHARGE SC SCH ×4 (08:20→21:25)
[2023-01-27] MEDS: OXYBUTYNIN CHLORIDE XL 5 MG TABCR PO SCH (08:21)
[2023-01-27] MEDS: PANTOprazole 40 MG TAB PO SCH (08:21)
[2023-01-27] MEDS: LETROZOLE 2.5 MG TAB PO SCH (08:21)
[2023-01-27] MEDS: ASPIRIN 81 MG ECTAB PO SCH (08:21)
[2023-01-27] MEDS: traMADol HCL 50 MG TABLET PO PRN ×2 (13:32→21:31)
--- NOTE | 2023-01-27 15:23 | Hospitalist Progress Note ---
Date of Service January 27, 2023 Assessment & Plan (1) Bilateral lower leg cellulitis: Plan: Currently on daptomycin and meropenem, day 4. 2 different gram-negative rods isolated. One is Providencia. She underwent surgical debridement of both legs at the bedside yesterday, January 25. (2) Wound of right lower extremity: Plan: Wound care nurse consultation and management appreciated (3) Lymphedema of both lower extremities: Plan: Due to chronic venous insufficiency. Leg elevation. Supportive care. Venous Doppler left lower extremity negative for DVT. No critical arterial obstruction seen on arterial Doppler study (4) Breast cancer: Plan: S/P left lumpectomy and radiation therapy. Currently on letrozole (5) DM II (diabetes mellitus, type II), controlled: Plan: ADA diet. Sliding scale coverage as needed. Metformin was recently started and will be continued. The Lantus that was started on admission has been discontinued . Fasting glucose this morning 137 which is acceptable (6) Esophageal reflux: Plan: Stable. Pantoprazole replaces omeprazole while hospitalized Plan Hopeful discharge to home on Cipro tomorrow, January 28, with home health services and home wound care going forward Admission and Anticipated Discharge Date Admission Date: January 24, 2023 Subjective Alert and oriented. No new problems. Medically stable. Anticipate discharge to home tomorrow, January 28, on an oral antibiotic along with wound care assistance and home health services Review of Systems Review of Systems: Constitutional-no fever or chills ENT-no blurred vision, no double vision, no epistaxis, no sore throat Respiratory-no cough, no wheezing, no shortness of breath Cardiac-no palpitations, no chest pain, no syncope GI-no nausea, vomiting, diarrhea, melena, hematochezia -no urinary retention, no urinary incontinence, no dysuria, no hematuria Musculoskeletal-bilateral lower extremities are heavily bandaged below the knees . Skin-no bruising, no rashes, no pruritus Neuro-generalized weakness. No focal deficits Psych-no depression, no anxiety Physical Exam Physical Exam: General-alert and oriented x3, no fevers, no chills HEENT-head atraumatic and normocephalic, pupils equal and reactive to light, extraocular muscles intact Neck-no lymphadenopathy or thyromegaly, trachea midline Chest-clear to auscultation percussion. No rales wheezing or rhonchi Cardiac-regular rate and rhythm, normal S1 and S2, no murmurs Abdomen-normal bowel sounds, nontender, no hepatosplenomegaly Extremities-chronic appearing edema and stasis ulcerations bilateral lower extremities with evidence of cellulitic changes Neuro-cranial nerves II through XII intact, motor and sensory function within normal limits, strength symmetrical with generalized weakness , no focal deficits Psych-normal affect, normal mood Results & Data Results & Data Vital Signs (Past 12 Hours) Vital Signs Temp Pulse Pulse Resp BP Pulse Ox O2 Del Method 01/27/23 11:30 36.9 C 102 H 16 113/70 97 Room Air 01/27/23 09:14 Room Air 01/27/23 09:03 93 H 01/27/23 07:29 36.8 C 96 H 16 111/72 96 Room Air 01/27/23 03:34 36.9 C 103 H 16 119/73 96 Room Air Laboratory Results 01/27/23 05:24 01/27/23 05:24 PG Care Time/CCT Total # of Minutes Spent Total Time Spent with Patient: Total time spent is greater than 50% in coordination of care (as documented) at patient's floor/unit and/or counseling patient: Coding Level of Care Code 95377 SUB INP/OBS CARE 2/35MIN Diagnoses Bilateral lower leg cellulitis L03.116; L03.115 Wound of right lower extremity S81.801A Lymphedema of both lower extremities I89.0 Breast cancer C50.112; Z17.0 Breast location: central portion of breast Estrogen receptor status: positive Patient sex: female Laterality: left DM II (diabetes mellitus, type II), controlled E11.9 Esophageal reflux K21.9 (4) Breast cancer Breast location: central portion of breast Estrogen receptor status: positive Patient sex: female Laterality: left Qualified Code(s): C50.112 - Malignant neoplasm of central portion of left female breast; Z17.0 - Estrogen receptor pos itive status [ER+]
[2023-01-27] MEDS: metFORMIN HCL ER 500 MG TABCR PO SCH (21:31)
[2023-01-27] MEDS: ENOXAPARIN INJ 40 MG/0.4 ML SYR SQ SCH (21:31)
[2023-01-28] MEDS: MEROPENEM 500 MG in SYRINGE 0 ML IV SCH ×3 (05:18→17:15)
[2023-01-28 07:47] LABS: BUN Creatinine Ratio 32.6 (10-20); Calcium 8.5 mg/dl (8.6-10.3); Creatinine Clr Calc Pharmacy 114.7 ml/min; Est GFR (Non-African American) 100.1 ml/min; Potassium 3.9 mmol/L (3.5-5.1)
[2023-01-28] MEDS: ASPIRIN 81 MG ECTAB PO SCH (08:15)
[2023-01-28] MEDS: LETROZOLE 2.5 MG TAB PO SCH (08:15)
[2023-01-28] MEDS: OXYBUTYNIN CHLORIDE XL 5 MG TABCR PO SCH (08:15)
[2023-01-28] MEDS: PANTOprazole 40 MG TAB PO SCH (08:15)
[2023-01-28] MEDS: INSULIN ASPART PER UNIT CHARGE SC SCH ×3 (08:20→17:40)
[2023-01-28] MEDS ORDERED: NURSING DECISION MEDICATION ONE (09:01)
[2023-01-28] MEDS ORDERED: MICONAZOLE NITRATE POWDER 85 GM EXT PRN (09:35)
[2023-01-28] MEDS ORDERED: MICONAZOLE NITRATE POWDER 85 GM EXT SCH (09:45)
--- NOTE | 2023-01-28 11:12 | Electrocardiogram Report ---
Test Reason : Blood Pressure : / mmHG Vent. Rate : 102 BPM Atrial Rate : 102 BPM P-R Int : 134 ms QRS Dur : 118 ms QT Int : 360 ms P-R-T Axes : 032 -47 010 degrees QTc Int : 469 ms Poor data quality, interpretation may be adversely affected Sinus tachycardia Left anterior fascicular block Possible Lateral infarct , age undetermined Abnormal ECG When compared with ECG of 21-SEP-2015 17:26, Left anterior fascicular block is now Present Borderline criteria for Lateral infarct are now Present vs lead placement Confirmed by Osbaldo Arteaga ([id number]) on 01/28/2023 11:12:03 AM Referred By: Mian Borrego Confirmed By:Osbaldo Arteaga
--- NOTE | 2023-01-28 12:21 | Discharge Summary ---
Date of Service January 28, 2023 Admission HPI Per Admitting Provider Coco is a 72 year old female with a PMH significant for uncontrolled DMII (has been trying diet modification unsuccessfully per PCP note), lymphedema of BL LE with BL venous insufficiency wounds, left breast cancer Estrogen positive, progesterone positive/HER negative on Letrozole, and GERD who presented to the [facility] ED on 01/24 at the recommendation of her PCP due to BL LE wounds. In the ED vitals were stable. Labs were significant for a leukocytosis of 15 with left shift of 11, glucose of 155 with corrected sodium of 134, alk phos of 141, and negative procal. Left tib/fib xray was read as "1. No fracture or evidence for acute osteomyelitis within the left tibia or fibula. 2. Left lower leg soft tissue swelling. 3. Severe left hip osteoarthritis.". Xray of the right tib/fib was read as "1. No fractures within the right tibia or fibula. No radiographic evidence for acute osteomyelitis. 2. Right lower leg soft tissue swelling.". Prior to admission the patient was given a dose of daptomycin and meropenem. At the time of the exam the patient was sitting in bed in no acute distress with her sitting bedisde, history was obtained from both. They state that the patient has a history of LE edema and BL LE wounds, she was previously seen at the wound care clinic. She states that her wounds had healed and she was doing well, until this past winter when she had the flu which made her weak. Since then her LE swelling and wounds have returned. Her has been trying to keep them clean and change her bandages. She was seen by her PCP yesterday who recommended she come to the ED as she was concerned the patient's wounds were too severe for oral antibiotics. The patient was prescribed metformin yesterday as she has been unable to successfully control her DM with diet and exercise. She denies recent fever, chills, chest pain, SOB, abd pain, nausea, vomiting, diarrhea, dysuria, hematuria, melena, and and recent trauma. She wishes to be a full code and for her to make medical decisions for her if she cannot make decisions herself. Please refer to Dr. Alvarado's attestation for any changes to the treatment plan Principal Diagnosis Bilateral lower extremity cellulitis, hypokalemia, weakness, chronic venous insufficiency of bilateral lower legs with chronic stasis dermatitis and ulcerations Discharge Exam General-alert and oriented x3, no fevers, no chills HEENT-head atraumatic and normocephalic, pupils equal and reactive to light, extraocular muscles intact Neck-no lymphadenopathy or thyromegaly, trachea midline Chest-clear to auscultation percussion. No rales wheezing or rhonchi Cardiac-regular rate and rhythm, normal S1 and S2, no murmurs Abdomen-normal bowel sounds, nontender, no hepatosplenomegaly Extremities-chronic appearing edema and stasis ulcerations bilateral lower extremities with evidence of cellulitic changes Neuro-cranial nerves II through XII intact, motor and sensory function within normal limits, strength symmetrical with generalized weakness , no focal deficits Psych-normal affect, normal mood Discharge Data Allergies Allergy/AdvReac Type Severity Reaction Status Date / Time Penicillins Allergy Unknown WAS TOLD Verified 01/24/23 17:19 YEARS AGO--NOT TO TAKE. procaine [From Novocain] Allergy Unknown Unknown Verified 01/24/23 17:19 Consultations 01/24/23 16:52 ED Decision to Admit Stat 01/24/23 19:16 Consult General Surgery Routine 01/28/23 10:53 Consult Wound Care Provider Routine Ordered Studies 01/24/23 19:17 US arterial duplex LE RT Routine US venous doppler LE LT Urgent Hospital Course (1) Bilateral lower leg cellulitis: Treated while hospitalized with daptomycin and meropenem, day 5. Swab culture positive for alcaligenes, Providencia, staph. She underwent surgical debridement of both legs at the bedside on January 25. (2) Wound of right lower extremity: Wound care nurse consultation and management appreciated (3) Lymphedema of both lower extremities: Due to chronic venous insufficiency. Leg elevation. Supportive care. Venous Doppler left lower extremity negative for DVT. No critical arterial obstruction seen on arterial Doppler study (4) Breast cancer: S/P left lumpectomy and radiation therapy. Currently on letrozole (5) DM II (diabetes mellitus, type II), controlled: ADA diet. Sliding scale coverage as needed. Metformin was recently started and will be continued. The Lantus that was started on admission has been discontinued . Fasting glucose this morning 137 which is acceptable (6) Esophageal reflux: Stable. Pantoprazole replaces omeprazole while hospitalized Plan Home later today, January 28, on Levaquin and Bactrim. Wound care appointment follow-up will be scheduled. Home health services requested Total Time Total Time Spent Total Time Spent (In Minutes): 45 minutes Discharge Plan Discharge Items Patient Disposition: Home - Home Health Services Reason For Visit: BL LE WOUNDS Discharge Diagnosis: Bilateral lower extremity cellulitis, hypokalemia, generalized weakness, chronic venous insufficiency of both lower legs with chronic stasis dermatitis and ulcerations Activity: Resume your previous activity Non-emergency contact: Primary Care Provider Call non-emergency contact if: you have any medication questions and your symptoms worsen Follow-up/Referrals: Mian Donahue MD [Primary Care Provider] - Diet: Carb Consistent or DM2 and Heart Healthy Addtl Attending Provider Instructions: Take both Levaquin and Bactrim (trimethoprim/sulfamethoxazole) as directed. Follow-up with wound care clinic. Metformin ER replaces regular metformin Pending Studies at Discharge: No Stand-Alone Forms: My [facility], Smoking Cessation Medications and DC Order Prescriptions: New metformin 500 mg Tablet Extended Release 24 Hr 500 mg PO PM Qty: 30 0RF levofloxacin 500 mg tablet 500 mg PO DAILY 21 Days Qty: 21 0RF sulfamethoxazole-trimethoprim [Bactrim DS] 800-160 mg tablet 1 tab PO BID 21 Days Qty: 42 0RF Continued tolterodine 2 mg tablet 2 mg PO BID Qty: 180 3RF omeprazole 20 mg capsule,delayed release(DR/EC) 20 mg PO DAILY PRN (Reason: Heartburn) Qty: 30 5RF betamethasone dipropionate 0.05 % cream 1 applic topical BID PRN (Reason: rash) Qty: 45 1RF tramadol 50 mg tablet 50 mg PO TID PRN (Reason: pain) Qty: 90 0RF letrozole 2.5 mg tablet 2.5 mg PO DAILY hydrocortisone 2.5 % cream 1 applic topical BID PRN (Reason: Pain, Mild) Qty: 28 0RF Rx Instructions: Apply to affected areas on face and neck BID x 2 weeks prn naproxen sodium 220 mg capsule 220 mg PO QID PRN (Reason: Pain) aspirin 81 mg Tablet,Delayed Release (Dr/Ec) 81 mg PO DAILY Discontinued metformin 500 mg tablet 500 mg PO BIDWMEAL Qty: 60 5RF Rx Instructions: PER PT "JUST ORDERED, NOT STARTED YET". Discharge Orders: Discharge Order (Routine); Ordered 01/28/23 Ordered By: Olivier Bryan/Other Patient Handouts: Nutrition for Wound Healing, Managing Type 2 Diabetes Admission Data Admit Date/Time: 01/24/23 18:32 Attending Provider: Olivier Villanueva Admit Provider: Matias Alvarado Primary Care Provider: Mian Donahue V. Other Providers: Matias Alvarado ; Jose C Smith ; Olivier Villanueva Other Interventions: Discharge Summary Assessment (RN) Last Done: 01/28/23 10:50 Coding Level of Care Code 65873 INP/OBS DISCH >30 MIN Diagnoses Bilateral lower leg cellulitis L03.116; L03.115 Wound of right lower extremity S81.801A Lymphedema of both lower extremities I89.0 Breast cancer C50.112; Z17.0 Breast location: central portion of breast Estrogen receptor status: positive Patient sex: female Laterality: left DM II (diabetes mellitus, type II), controlled E11.9 Esophageal reflux K21.9
[2023-01-28] MEDS: traMADol HCL 50 MG TABLET PO PRN (12:54)
--- NOTE | 2023-01-31 17:45 | Coding Query ---
DEBRIDEMENT DOCUMENTATION To promote full compliance with coding requirements relating to patient care, physician participation is requested in all cases of legal librarian uncertainty. Please assist us with the question(s) below: Please place an X in the parenthesis (x). If other, please document the finding: Type of Debridement: ( ) Excisional Debridement- Cutting away necrotic, devitalized tissue or slough to the level of viable tissue using a sharp instrument (i.e. scalpel, scissors, etc.) (X ) Non Excisional Debridement- The removal of necrotic, devitalized tissue or slough by means of scraping, mechanical brushing, flushing, or washing (i.e. irrigation,whirlpool);minor removal of loose fragments. ( ) Other (please specify): Instrument Used: (X ) Scissors ( ) Scalpel ( ) Curette ( ) Other (please specify): Depth of Debridement: ( X) Skin ( ) Skin and Subcutaneous Tissue ( ) Skin, Subcutaneous Tissue and Muscle ( ) Skin, Subcutaneous Tissue, Muscle and Bone ( ) Other (please specify): Please Specify the Size of Debridement in cm2: Thank you Anne Marie BRIGHT
--- NOTE | 2023-01-31 17:48 | Coding Query ---
To promote full compliance with coding requirements relating to patient care, physician participation is requested in all cases of thread tool grinder set up operator uncertainty. Please assist us with the question(s) below: Please specify the known or suspected type by placing an "X" within the parenthesis (x). A diabetic ulcer of (right calf and left lower leg) If possible, please check the box that provides the specific stage of the diabetic ulcer (x ) limited to breakdown of skin ( ) with fat layer exposed ( ) with necrosis of muscle ( ) with necrosis of bone ( ) with muscle involvement without evidence of necrosis ( ) with bone involvement without evidence of necrosis ( ) with other specified severity ( ) with unspecified severity Thank you Anne Marie BRIGHT
== END 2023-01-28 18:47 | disposition home or self-care (01) | DRG 603 ==
LOC: ED 14:19 → SUATTDRO 18:32 → EDINP 18:32 → 2N 21:06